=== PATIENT | male | born 1965 | race Asian ===

== ENCOUNTER 2020-12-12 11:45 | Outpatient (REF) | payer OTHER, SELFPAY ==
[2020-12-12 12:13] LABS: MANUAL DIFF FLAG NO
[2020-12-12 12:18] LABS: Basophils Percent Auto 0.7 % (0-2); Eosinophils Percent Auto 0.7 % (0-4); Hematocrit 45.3 % (42-52); Hemoglobin 15.5 g/dl (14.0-18.0); Imm Gran Abs Auto 0.01 X10*3/uL (0.00-0.03); Imm Gran Pct Auto 0.2 % (0.0-0.4); Lymphocytes Absolute Auto 1.4 X10*3/uL (1.2-4.9); Lymphocytes Percent Auto 30.5 % (20-40); Mean Corpuscular HGB Conc 34.2 g/dl (31.0-36.0); Mean Corpuscular Volume 87.8 fL (80-98); Mean Platelet Volume 9.5 fL (9.4-12.4); Monocytes Absolute Auto 0.4 X10*3/uL (0.1-1.2); Monocytes Percent Auto 7.8 % (2-11); Neutrophils Absolute Auto 2.7 X10*3/uL (2.0-8.3); Neutrophils Percent Auto 60.1 % (45-73); Platelet Count 255 X10*3/uL (160-400); Red Blood Count 5.16 X10*6/uL (4.60-5.80); Red Cell Distribution Width 12.7 % (11.0-16.0); White Blood Count 4.5 X10*3/uL (4.8-10.8)
[2020-12-12 12:22] LABS: Prothrombin Time 11.5 SEC (10.8-13.0)
[2020-12-12 12:45] LABS: Alanine Aminotransferase 29 U/L (0-40); Albumin Level 4.9 g/dL (3.5-5.0); Alkaline Phosphatase 83 U/L (39-117); Anion Gap 11 (12-20); Aspartate Amino Transferase 22 U/L (5-37); Bilirubin Direct 0.3 mg/dL (0.0-0.5); Bilirubin Total 0.8 mg/dL (0.0-1.0); Blood Urea Nitrogen 14 mg/dL (9-16); Calcium 9.3 mg/dL (8.4-10.2); Carbon Dioxide 27 mmol/L (22-29); Chloride 107 mmol/L (96-108); Estimated Glomerular Filt Rate > 60; Glucose Random 97 mg/dL (60-115); Potassium 3.8 mmol/L (3.3-5.1); Sodium 141 mmol/L (135-145); Total Protein 7.9 g/dL (6.5-8.0)
[2020-12-13 04:41] LABS: HBS Num1 0.93 mIU/mL (0-7.99); ~Hepatitis B Surface Antibody NONREACTIVE (Nonreactive)
[2020-12-13 04:58] LABS: HBsAGNum2 Reactive; HBsAGNum3 Reactive; Hepatitis B Surface Antigen Retest CNFM (Negative)
[2020-12-13 05:01] LABS: Hepatitis B Surface Antigen Rep Reactive (Negative)
[2020-12-13 13:26] LABS: Hepatitis BE Antibody REACTIVE (NON-REACTIVE); Hepatitis BE Antigen NON-REACTIVE (NON-REACTIVE)
[2020-12-15 16:48] LABS: Hepatitis B Viral DNA Qn - cp <1.00 NOT DETECTED Log IU/mL (NOT DETECTED); Hepatitis B Viral DNA Qn-IU/mL <10 NOT DETECTED IU/mL (NOT DETECTED)
[2020-12-16 17:28] LABS: FIB-ALT 27 U/L (9-46); FIB-Alpha-2-Macroglobulin 232 mg/dL (106-279); FIB-Apolipoprotein A1 119 mg/dL (94-176); FIB-GGT 19 U/L (3-95); FIB-Haptoglobin 71 mg/dL (43-212); FIB-Total Bilirubin 0.7 mg/dL (0.2-1.2); Liver Fibrosis Score 0.47; Liver Fibrosis Stage F1-F2; Nec Inflam Act Grade A0; Nec Inflam Act Score 0.16
[2020-12-16 18:57] LABS: Hepatitis Delta Antibody NEGATIVE
== END 2020-12-12 11:46 | disposition home or self-care (01) ==
LOC: HO.LAB 11:45
PROVIDERS: Visit Provider Internal Medicine
DX: B19.10 Unspecified viral hepatitis B without hepatic coma (principal)
CPT/HCPCS: 36415; 80048; 80076; 81596; 85025; 85610; 86692; 86706; 86707; 87340; 87350; 87517

== ENCOUNTER → 2020-12-26 10:28 | Outpatient (BNVA) | payer OTHER, SELFPAY | PROVIDERS: PCP Internal Medicine; Visit Provider Internal Medicine | DX: Z13.89 Encounter for screening for other disorder (principal) | CPT/HCPCS: 99212 ==

== ENCOUNTER 2021-01-11 08:55 | Outpatient (REF) | payer OTHER, SELFPAY ==
--- NOTE | ~2021-01-11 | US_ITS ---
EXAMINATION: US ABDOMEN COMPLETE CLINICAL INFORMATION: Unspecified viral hepatitis B, coma. COMPARISON: Ultrasound abdomen 05/09/2020 and 07/08/2019 TECHNIQUE: Real-time imaging of the abdominal viscera. FINDINGS: PANCREAS: Most of the pancreas is obscured by overlying gas. ABDOMINAL AORTA: There is mild atherosclerosis of the abdominal aorta without aneurysmal dilatation. INFERIOR VENA CAVA: Visualized portions are normal. LIVER: The liver is diffusely echogenic with no focal lesion seen. The liver is normal in size. The liver contour is normal. No focal hepatic lesion. There is no intrahepatic biliary duct dilatation seen. GALLBLADDER: Normal. The gallbladder is physiologically distended without evidence of stones, sludge, polyps, wall thickening or pericholecystic fluid. COMMON BILE DUCT: Normal in caliber measuring 0.5 cm in diameter. RIGHT KIDNEY: Normal. No hydronephrosis. No renal calculi or focal parenchymal lesions. The kidney measures 11.4 cm in maximum dimension. LEFT KIDNEY: There is an echogenic stone in the upper pole measuring 0.3 x 0.2 cm. No additional echogenic stones seen. There is no caliectasis or hydronephrosis. No focal parenchymal lesions. The kidney measures 12.2 cm in maximum dimension. SPLEEN: Normal. The spleen measures 10.0 cm in maximum dimension. FREE FLUID: None. US/US abdomen complete IMPRESSION: Diffuse hepatic steatosis without focal lesion. Nonobstructive echogenic left renal calculi measuring 0.3 x 0.2 cm.
== END 2021-01-11 08:56 | disposition home or self-care (01) ==
LOC: HO.US 08:55
PROVIDERS: Visit Provider Internal Medicine
DX: B19.10 Unspecified viral hepatitis B without hepatic coma (principal)
CPT/HCPCS: 76700

== ENCOUNTER 2021-05-22 09:16 | Outpatient (REF) | payer OTHER, SELFPAY ==
[2021-05-22 10:19] LABS: Alanine Aminotransferase 27 U/L (0-40); Albumin Level 4.7 g/dL (3.5-5.0); Alkaline Phosphatase 87 U/L (39-117); Aspartate Amino Transferase 20 U/L (5-37); Bilirubin Direct 0.3 mg/dL (0.0-0.5); Bilirubin Total 0.9 mg/dL (0.0-1.0); Total Protein 7.8 g/dL (6.5-8.0)
[2021-05-24 12:26] LABS: Hepatitis B Viral DNA Qn - cp <1.00 NOT DETECTED Log IU/mL (NOT DETECTED); Hepatitis B Viral DNA Qn-IU/mL <10 NOT DETECTED IU/mL (NOT DETECTED)
[2021-05-26 19:57] LABS: FIB-ALT 24 U/L (9-46); FIB-Alpha-2-Macroglobulin 232 mg/dL (106-279); FIB-Apolipoprotein A1 109 mg/dL (94-176); FIB-GGT 19 U/L (3-95); FIB-Haptoglobin 70 mg/dL (43-212); FIB-Total Bilirubin 0.8 mg/dL (0.2-1.2); Liver Fibrosis Score 0.53; Liver Fibrosis Stage F2; Nec Inflam Act Grade A0; Nec Inflam Act Score 0.14
== END 2021-05-22 09:17 | disposition home or self-care (01) ==
LOC: HO.LAB 09:16
PROVIDERS: PCP Internal Medicine; Visit Provider Internal Medicine
DX: B19.10 Unspecified viral hepatitis B without hepatic coma (principal)
CPT/HCPCS: 36415; 80076; 81596; 87517

== ENCOUNTER → 2021-06-05 10:25 | Outpatient (BNVA) | payer OTHER, SELFPAY | PROVIDERS: Visit Provider Internal Medicine | DX: B19.10 Unspecified viral hepatitis B without hepatic coma (principal) | CPT/HCPCS: 99212 ==

== ENCOUNTER 2022-01-08 10:28 | Outpatient (REF) | payer OTHER, SELFPAY ==
[2022-01-08 12:04] LABS: Hematocrit 44.9 % (42.0-52.0); Hemoglobin 15.1 g/dl (14.0-18.0); Mean Corpuscular HGB Conc 33.6 g/dl (31.0-36.0); Mean Corpuscular Hemoglobin 29.6 pg (27.0-33.0); Mean Platelet Volume 9.4 fL (9.4-12.4); Platelet Count 242 X10*3/uL (160-400); Red Cell Distribution Width 13.3 % (11.0-16.0); White Blood Count 6.6 X10*3/uL (4.8-10.8)
[2022-01-08 12:07] LABS: Prothrombin Time 11.2 SEC (9.9-13.0)
[2022-01-08 12:32] LABS: Alanine Aminotransferase 21 U/L (0-40); Albumin Level 4.5 g/dL (3.5-5.0); Alkaline Phosphatase 82 U/L (39-117); Aspartate Amino Transferase 21 U/L (5-37); Bilirubin Direct 0.4 mg/dL (0.0-0.5); Estimated Glomerular Filt Rate > 60; Total Protein 7.4 g/dL (6.5-8.0)
[2022-01-11 15:21] LABS: Hepatitis B Viral DNA Qn - cp <1.00 NOT DETECTED Log IU/mL (NOT DETECTED); Hepatitis B Viral DNA Qn-IU/mL <10 NOT DETECTED IU/mL (NOT DETECTED)
[2022-01-12 16:32] LABS: FIB-ALT 20 U/L (9-46); FIB-Alpha-2-Macroglobulin 226 mg/dL (106-279); FIB-Apolipoprotein A1 137 mg/dL (94-176); FIB-GGT 14 U/L (3-85); FIB-Haptoglobin 57 mg/dL (43-212); FIB-Total Bilirubin 0.7 mg/dL (0.2-1.2); Liver Fibrosis Score 0.41; Liver Fibrosis Stage F1-F2; Nec Inflam Act Grade A0; Nec Inflam Act Score 0.09
[2022-01-13 20:31] LABS: Hepatitis Delta Antibody NEGATIVE
== END 2022-01-08 10:29 | disposition home or self-care (01) ==
LOC: HO.LAB 10:28
PROVIDERS: Visit Provider Internal Medicine
DX: B19.10 Unspecified viral hepatitis B without hepatic coma (principal)
CPT/HCPCS: 36415; 80076; 81596; 82565; 85027; 85610; 86692; 87517; 99212

== ENCOUNTER 2022-02-12 11:12 | Outpatient (REF) | payer OTHER, SELFPAY ==
--- NOTE | ~2022-02-12 | US_ITS ---
EXAMINATION: US ABDOMEN COMPLETE CLINICAL INFORMATION: Unspecified viral hepatitis B without hepatic coma. COMPARISON: Ultrasound abdomen complete 01/11/2021 TECHNIQUE: Real-time imaging of the abdominal viscera. FINDINGS: PANCREAS: Obscured by bowel gas. ABDOMINAL AORTA: The proximal, mid, and distal segments are normal in caliber. INFERIOR VENA CAVA: Visualized portions are normal. LIVER: Normal. The liver is normal in size. The liver contour is normal. Parenchymal echogenicity is normal. No focal hepatic lesion. There is no intrahepatic biliary duct dilatation seen. GALLBLADDER: Normal. The gallbladder is physiologically distended without evidence of stones, sludge, polyps, wall thickening or pericholecystic fluid. COMMON BILE DUCT: Normal in caliber measuring 0.3 cm in diameter. RIGHT KIDNEY: Normal. No hydronephrosis. No renal calculi or focal parenchymal lesions. The kidney measures 11.5 cm in maximum dimension. LEFT KIDNEY: Normal. No hydronephrosis. No renal calculi or focal parenchymal lesions. The kidney measures 11.1 cm in maximum dimension. SPLEEN: Normal. The spleen measures 9.5 cm in maximum dimension. FREE FLUID: None. US/US abdomen complete IMPRESSION: Unremarkable sonographic appearance of the liver. No liver lesion. Pancreas is obscured by bowel gas.
== END 2022-02-12 11:13 | disposition home or self-care (01) ==
LOC: HO.US 11:12
PROVIDERS: Visit Provider Internal Medicine
DX: B19.10 Unspecified viral hepatitis B without hepatic coma (principal)
CPT/HCPCS: 76700

== ENCOUNTER 2022-07-05 08:34 | Outpatient (REF) | payer OTHER, SELFPAY ==
[2022-07-05 08:53] LABS: MANUAL DIFF FLAG NO
[2022-07-05 09:55] LABS: Basophils Percent Auto 0.7 % (0-2); Eosinophils Absolute Auto 0.1 X10*3/uL (0.0-0.4); Eosinophils Percent Auto 1.3 % (0-4); Hematocrit 42.7 % (42.0-52.0); Hemoglobin 14.6 g/dl (14.0-18.0); Imm Gran Abs Auto 0.01 X10*3/uL (0.00-0.03); Imm Gran Pct Auto 0.2 % (0.0-0.4); Lymphocytes Absolute Auto 1.6 X10*3/uL (1.2-4.9); Lymphocytes Percent Auto 29.5 % (20-40); Mean Corpuscular HGB Conc 34.2 g/dl (31.0-36.0); Mean Corpuscular Hemoglobin 30.2 pg (27.0-33.0); Mean Corpuscular Volume 88.2 fL (80.0-98.0); Mean Platelet Volume 9.8 fL (9.4-12.4); Monocytes Absolute Auto 0.4 X10*3/uL (0.1-1.2); Monocytes Percent Auto 8.1 % (2-11); Neutrophils Absolute Auto 3.3 x10*3/uL (2.0-8.3); Neutrophils Percent Auto 60.2 % (45-73); Platelet Count 239 X10*3/uL (160-400); Red Blood Count 4.84 X10*6/uL (4.60-5.80); Red Cell Distribution Width 12.7 % (11.0-16.0); White Blood Count 5.5 X10*3/uL (4.8-10.8)
[2022-07-05 09:58] LABS: INTERNATIONAL NORM RATIO 0.9 (0.9-1.1); Prothrombin Time 10.5 SEC (10.0-13.1)
[2022-07-05 10:30] LABS: Alanine Aminotransferase 33 U/L (0-40); Albumin Level 4.7 g/dL (3.5-5.0); Alkaline Phosphatase 85 U/L (39-117); Anion Gap 13 (12-20); Aspartate Amino Transferase 28 U/L (5-37); Bilirubin Direct 0.3 mg/dL (0.0-0.5); Bilirubin Total 0.8 mg/dL (0.0-1.0); Blood Urea Nitrogen 13 mg/dL (9-16); Calcium 9.4 mg/dL (8.4-10.2); Carbon Dioxide 25 mmol/L (22-29); Chloride 106 mmol/L (96-108); Estimated Glomerular Filt Rate > 60; Glucose Random 94 mg/dL (60-115); Potassium 4.2 mmol/L (3.3-5.1); Sodium 140 mmol/L (135-145); Total Protein 7.6 g/dL (6.5-8.0)
[2022-07-05 10:51] LABS: ~HepC Num1 0.17 S/CO (0.00-0.79); ~Hepatitis C Antibody Nonreactive (Nonreactive)
[2022-07-07 15:06] LABS: Hepatitis B Viral DNA Qn - cp <1.00 DETECTED Log IU/mL (NOT DETECTED); Hepatitis B Viral DNA Qn-IU/mL <10 DETECTED IU/mL (NOT DETECTED)
[2022-07-11 15:26] LABS: FIB-ALT 28 U/L (9-46); FIB-Alpha-2-Macroglobulin 238 mg/dL (106-279); FIB-Apolipoprotein A1 127 mg/dL (94-176); FIB-GGT 19 U/L (3-85); FIB-Haptoglobin 78 mg/dL (43-212); FIB-Total Bilirubin 0.7 mg/dL (0.2-1.2); Liver Fibrosis Score 0.46; Liver Fibrosis Stage F1-F2; Nec Inflam Act Grade A0; Nec Inflam Act Score 0.16
[2022-07-11 20:17] LABS: Hepatitis Delta Antibody NEGATIVE
== END 2022-07-05 08:35 | disposition home or self-care (01) ==
LOC: HO.LAB 08:34
PROVIDERS: PCP Internal Medicine; Visit Provider Internal Medicine
DX: B19.10 Unspecified viral hepatitis B without hepatic coma (principal)
CPT/HCPCS: 36415; 80048; 80076; 81596; 85025; 85610; 86692; 86803; 87517

== ENCOUNTER → 2022-07-16 10:37 | Outpatient (BNVA) | payer OTHER, SELFPAY | PROVIDERS: Visit Provider Internal Medicine | DX: B19.10 Unspecified viral hepatitis B without hepatic coma (principal) | CPT/HCPCS: 99212 ==

== ENCOUNTER 2022-12-20 12:48 | Outpatient (REF) | payer OTHER, SELFPAY ==
[2022-12-20 13:00] LABS: MANUAL DIFF FLAG NO
[2022-12-20 13:03] LABS: Basophils Percent Auto 0.7 % (0-2); Eosinophils Percent Auto 0.9 % (0-4); Hematocrit 44.6 % (42.0-52.0); Hemoglobin 15.5 g/dl (14.0-18.0); Imm Gran Abs Auto 0.01 X10*3/uL (0.00-0.03); Imm Gran Pct Auto 0.2 % (0.0-0.4); Lymphocytes Absolute Auto 1.2 X10*3/uL (1.2-4.9); Lymphocytes Percent Auto 26.4 % (20-40); Mean Corpuscular HGB Conc 34.8 g/dl (31.0-36.0); Mean Corpuscular Hemoglobin 30.7 pg (27.0-33.0); Mean Corpuscular Volume 88.3 fL (80.0-98.0); Mean Platelet Volume 9.3 fL (9.4-12.4); Monocytes Absolute Auto 0.4 X10*3/uL (0.1-1.2); Neutrophils Absolute Auto 2.8 x10*3/uL (2.0-8.3); Neutrophils Percent Auto 63.8 % (45-73); Platelet Count 236 X10*3/uL (160-400); Red Blood Count 5.05 X10*6/uL (4.60-5.80); Red Cell Distribution Width 13.1 % (11.0-16.0); White Blood Count 4.4 X10*3/uL (4.8-10.8)
[2022-12-20 13:37] LABS: Alanine Aminotransferase 27 U/L (0-40); Albumin Level 4.8 g/dL (3.5-5.0); Alkaline Phosphatase 88 U/L (39-117); Anion Gap 13 (12-20); Aspartate Amino Transferase 22 U/L (5-37); Bilirubin Direct 0.3 mg/dL (0.0-0.5); Bilirubin Total 1.3 mg/dL (0.0-1.0); Blood Urea Nitrogen 13 mg/dL (9-16); Calcium 9.4 mg/dL (8.4-10.2); Carbon Dioxide 24 mmol/L (22-29); Chloride 109 mmol/L (96-108); Estimated Glomerular Filt Rate > 60; Glucose Random 96 mg/dL (60-115); Sodium 142 mmol/L (135-145); Total Protein 7.7 g/dL (6.5-8.0)
[2022-12-21 08:36] LABS: HBS Num1 1.76 mIU/mL (0-7.99); HBsAGNum1 140.74 S/CO (0.00-0.99); ~HepC Num1 0.15 S/CO (0.00-0.79); ~Hepatitis B Surface Antibody NONREACTIVE (Nonreactive); ~Hepatitis C Antibody Nonreactive (Nonreactive)
[2022-12-21 10:35] LABS: HBsAGNum2 Reactive; HBsAGNum3 Reactive
[2022-12-21 10:37] LABS: Hepatitis B Surface Antigen Rep Reactive (Negative)
[2022-12-25 08:18] LABS: Hepatitis B Viral DNA Qn - cp <1.00 NOT DETECTED Log IU/mL (NOT DETECTED); Hepatitis B Viral DNA Qn-IU/mL <10 NOT DETECTED IU/mL (NOT DETECTED)
[2022-12-26 20:34] LABS: Hepatitis Delta Antibody NEGATIVE
[2022-12-28 00:18] LABS: FIB-ALT 19 U/L (9-46); FIB-Alpha-2-Macroglobulin 235 mg/dL (106-279); FIB-Apolipoprotein A1 125 mg/dL (94-176); FIB-GGT 18 U/L (3-85); FIB-Haptoglobin 68 mg/dL (43-212); FIB-Total Bilirubin 0.9 mg/dL (0.2-1.2); Liver Fibrosis Score 0.52; Liver Fibrosis Stage F2; Nec Inflam Act Grade A0
== END 2022-12-20 12:49 | disposition home or self-care (01) ==
LOC: HO.LAB 12:48
PROVIDERS: PCP Internal Medicine; Visit Provider Internal Medicine
DX: B19.10 Unspecified viral hepatitis B without hepatic coma (principal)
CPT/HCPCS: 36415; 80048; 80076; 81596; 85025; 86692; 86706; 86803; 87340; 87517

== ENCOUNTER → 2023-01-14 10:47 | Outpatient (BNVA) | payer OTHER, SELFPAY | PROVIDERS: PCP Internal Medicine; Visit Provider Internal Medicine | DX: B19.10 Unspecified viral hepatitis B without hepatic coma (principal) | CPT/HCPCS: 99212 ==

== ENCOUNTER 2023-01-28 08:24 | Outpatient (REF) | payer OTHER, SELFPAY ==
--- NOTE | ~2023-01-28 | US_ITS ---
EXAMINATION: US ABDOMEN COMPLETE CLINICAL INFORMATION: Unspecified viral hepatitis B without hepatic coma. COMPARISON: Ultrasound abdomen complete 02/12/2022 and 01/11/2021. TECHNIQUE: Real-time imaging of the abdominal viscera. Technically limited study secondary to bowel gas. FINDINGS: PANCREAS: Partially visualized body the pancreas is echogenic. The head and the tail of pancreas is not seen well. ABDOMINAL AORTA: The proximal, mid, and distal segments are normal in caliber. INFERIOR VENA CAVA: Visualized portions are normal. LIVER: The liver is normal in size. The liver contour is normal. There is increased liver echogenicity No focal hepatic lesion. There is no intrahepatic biliary duct dilatation seen. GALLBLADDER: Gallbladder wall thickness is 0.22 cm. The gallbladder is physiologically distended without evidence of stones, sludge, polyps, wall thickening or pericholecystic fluid. COMMON BILE DUCT: Normal in caliber measuring 0.2 cm in diameter. RIGHT KIDNEY: Normal. No hydronephrosis. No renal calculi or focal parenchymal lesions. The kidney measures 10.9 cm in maximum dimension. LEFT KIDNEY: There is an echogenic stone in the upper pole measuring 0.41 x 0.38 x 0.37 cm. No hydronephrosis or focal parenchymal lesions. The kidney measures 11.4 cm in maximum dimension. SPLEEN: Normal. The spleen measures 8.7 cm in maximum dimension. FREE FLUID: None. US/US abdomen complete IMPRESSION: 1. Diffuse echogenic liver without focal lesion. Previously, the ultrasound of the liver was normal 2. Small echogenic stone upper pole left kidney without caliectasis or hydronephrosis. 3. The rest of the abdominal ultrasound is unremarkable. .
== END 2023-01-28 08:25 | disposition home or self-care (01) ==
LOC: HO.HMGCX 08:24
PROVIDERS: PCP Internal Medicine; Visit Provider Internal Medicine
DX: B19.10 Unspecified viral hepatitis B without hepatic coma (principal)
CPT/HCPCS: 76700

== ENCOUNTER 2023-07-04 09:54 | Outpatient (REF) | payer OTHER, SELFPAY ==
[2023-07-04 10:12] LABS: MANUAL DIFF FLAG NO
[2023-07-04 10:43] LABS: Basophils Percent Auto 0.7 % (0-2); Eosinophils Percent Auto 0.9 % (0-4); Hematocrit 43.2 % (42.0-52.0); Imm Gran Abs Auto 0.01 X10*3/uL (0.00-0.03); Imm Gran Pct Auto 0.2 % (0.0-0.4); Lymphocytes Absolute Auto 1.3 X10*3/uL (1.2-4.9); Lymphocytes Percent Auto 27.7 % (20-40); Mean Corpuscular HGB Conc 34.7 g/dl (31.0-36.0); Mean Corpuscular Hemoglobin 30.3 pg (27.0-33.0); Mean Corpuscular Volume 87.3 fL (80.0-98.0); Mean Platelet Volume 9.9 fL (9.4-12.4); Monocytes Absolute Auto 0.4 X10*3/uL (0.1-1.2); Monocytes Percent Auto 9.1 % (2-11); Neutrophils Absolute Auto 2.8 x10*3/uL (2.0-8.3); Neutrophils Percent Auto 61.4 % (45-73); Platelet Count 229 X10*3/uL (160-400); Red Blood Count 4.95 X10*6/uL (4.60-5.80); Red Cell Distribution Width 12.6 % (11.0-16.0); White Blood Count 4.5 X10*3/uL (4.8-10.8)
[2023-07-04 10:53] LABS: Prothrombin Time 11.8 SEC (11.1-13.3)
[2023-07-04 11:14] LABS: Alanine Aminotransferase 25 U/L (0-40); Albumin Level 4.8 g/dL (3.5-5.0); Alkaline Phosphatase 84 U/L (39-117); Anion Gap 13 (12-20); Aspartate Amino Transferase 24 U/L (5-37); Bilirubin Direct 0.3 mg/dL (0.0-0.5); Blood Urea Nitrogen 15 mg/dL (9-16); Calcium 9.8 mg/dL (8.4-10.2); Carbon Dioxide 23 mmol/L (22-29); Chloride 107 mmol/L (96-108); Estimated Glomerular Filt Rate > 60; Glucose Random 89 mg/dL (60-115); Potassium 3.6 mmol/L (3.3-5.1); Sodium 139 mmol/L (135-145)
[2023-07-05 15:53] LABS: Hepatitis B Viral DNA Qn - cp NOT DETECTED Log IU/mL (NOT DETECTED); Hepatitis B Viral DNA Qn-IU/mL NOT DETECTED (NOT DETECTED)
[2023-07-12 15:29] LABS: FIB-ALT 19 U/L (9-46); FIB-Alpha-2-Macroglobulin 244 mg/dL (106-279); FIB-Apolipoprotein A1 120 mg/dL (94-176); FIB-GGT 15 U/L (3-85); FIB-Haptoglobin 64 mg/dL (43-212); FIB-Total Bilirubin 0.8 mg/dL (0.2-1.2); Liver Fibrosis Score 0.53; Liver Fibrosis Stage F2; Nec Inflam Act Grade A0
[2023-07-12 20:54] LABS: Hepatitis Delta Antibody NEGATIVE
== END 2023-07-04 09:55 | disposition home or self-care (01) ==
LOC: HO.LAB 09:54
PROVIDERS: PCP Internal Medicine; Visit Provider Internal Medicine
DX: B19.10 Unspecified viral hepatitis B without hepatic coma (principal)
CPT/HCPCS: 36415; 80048; 80076; 81596; 85025; 85610; 86692; 87517

== ENCOUNTER 2023-07-17 15:03 | Outpatient (AMB) | payer OTHER, SELFPAY ==
[2023-07-17 15:00] VITALS: BP 128/80; PULSE 65; O2SAT 99; BMI 27.4
--- NOTE | 2023-07-17 15:00 | A.OFFVIS_ITS ---
Intake Vital Signs 07/17/23 15:00 Height 5 ft 10 in Weight 191 lb BMI 27.4 BP 128/80 Blood Pressure Location Lt brachial Position Sitting Pulse 65 Pulse Source Pulse Oximeter Pulse Oximetry (%) 99 Intake Visit Reasons: F/U 6 mth,lab & U/S Allergies No Known Allergies Allergy (Verified 07/17/23 15:07) HPI F/U 6 mth,lab & U/S HPI Details He is here for followup Hepatitis B. He has been taking tenofovir alafenamide with no concern. He has no complaints. Fibrotest femains at F2 and viral load undetectable. [facility] Medical History Hepatitis B Social History Household Members: Spouse Housing: House Alcohol intake: never Patient Tobacco Use Status: Former Tobacco user Cigarettes Per Day: 2 service: No Current occupational status: unemployed Sexual orientation: Straight/Heterosexual Gender identity: Male Review of Systems Const All systems reviewed & are unremarkable except as noted in HPI and below Physical Exam Vital Signs: Last Vital Signs Pulse 65 07/17/23 15:00 BP 128/80 07/17/23 15:00 Pulse Ox 99 07/17/23 15:00 BMI result Body Mass Index 27.4 Const General: cooperative Orientation/consciousness: patient oriented x3 HEENT Head: Yes normal to inspection Mouth: Normal oral and palatal mucosa present Eyes General: appearance normal, both eyes and all related structures Pupils: Equal, round and reactive pupils present Resp Effort & Inspection: normal respiratory effort Cardio Rate: regular rate Rhythm: regular rhythm GI Palpation (GI): Soft to palpation and nontender General: Yes no CVA tenderness Back/Spine/Pelvis Back: no CVA tenderness Skin General skin exam: no rashes or lesions noted Neuro General: patient oriented x3 Cranial nerves: Yes CN's II-XII intact bilaterally and Yes Equal, round and reactive pupils present Extrem General: Yes normal to inspection Psych Appearance: grossly normal Assessment & Plan Assessment & Plan (1) Hepatitis B: Comment: He is doing well His labs show no progression of Hepatitis B clinically but concern over increased fibrosis score to F2 I am concerned about fatty liver. Code(s): B19.10 - Unspecified viral hepatitis B without hepatic coma Plan Continue Vemlidy. See in six months and check labs as below and liver u/s. Orders: Orders Complete Blood Count Auto Diff 5 Months B19.10 - Unspecified viral hepatitis B without hepatic coma Liver Panel 5 Months B19.10 - Unspecified viral hepatitis B without hepatic coma Hepatitis B Viral DNA Qn 07/17/23 B19.10 - Unspecified viral hepatitis B without hepatic coma Hepatitis Delta Antibody 5 Months B19.10 - Unspecified viral hepatitis B without hepatic coma Basic Metabolic Panel 5 Months B19.10 - Unspecified viral hepatitis B without hepatic coma Liver Fibrosis Pnl 5 Months B19.10 - Unspecified viral hepatitis B without hepatic coma Prothrombin Time INR 5 Months B19.10 - Unspecified viral hepatitis B without hepatic coma US abdomen complete 07/17/23 B19.10 - Unspecified viral hepatitis B without hepatic coma Medications: Changed From tenofovir alafenamide must administer with a meal/food 25 mg PO DAILY 30 days 30 tabs 5RF To tenofovir alafenamide (Vemlidy) must administer with a meal/food 25 mg PO DAILY 90 tabs 1RF 90 days Coding Level of Care Code Est Pt Level 3 (32010) Diagnoses Hepatitis B B19.10
== END 2023-07-17 16:11 | disposition home or self-care (01) ==
LOC: HO.HID 15:03
PROVIDERS: PCP Internal Medicine; Visit Provider Internal Medicine
DX: B19.10 Unspecified viral hepatitis B without hepatic coma (principal)
CPT/HCPCS: 99213

== ENCOUNTER → 2023-07-17 15:03 | Outpatient (BNVA) | payer OTHER, SELFPAY | PROVIDERS: PCP Internal Medicine; Visit Provider Internal Medicine | DX: B19.10 Unspecified viral hepatitis B without hepatic coma (principal) | CPT/HCPCS: 99212 ==

== ENCOUNTER 2024-01-08 08:56 | Outpatient (REF) | payer OTHER, SELFPAY ==
--- NOTE | ~2024-01-08 | US_ITS ---
EXAMINATION: US ABDOMEN COMPLETE CLINICAL INFORMATION: Unspecified viral hepatitis B without hepatic coma. COMPARISON: Ultrasound abdomen complete 01/28/2023 and 02/12/2022. TECHNIQUE: Real-time imaging of the abdominal viscera. FINDINGS: PANCREAS: Largely obscured by overlapping bowel gas. ABDOMINAL AORTA: The proximal, mid, and distal segments are normal in caliber. INFERIOR VENA CAVA: Visualized portions are normal. LIVER: The liver is normal in size. The liver contour is normal. There is diffuse increased liver parenchymal echogenicity. No focal hepatic lesion. There is no intrahepatic biliary duct dilatation seen. GALLBLADDER: Normal. The gallbladder is physiologically distended without evidence of stones, sludge, polyps, wall thickening or pericholecystic fluid. COMMON BILE DUCT: Normal in caliber measuring 0.3 cm in diameter. RIGHT KIDNEY: Normal. No hydronephrosis. No renal calculi or focal parenchymal lesions. The kidney measures 10.9 cm in maximum dimension. LEFT KIDNEY: No hydronephrosis or focal parenchymal lesions. The kidney measures 11.4 cm in maximum dimension. At the upper pole, a 5 mm nonobstructing calculus is seen. SPLEEN: Normal. The spleen measures 9.3 cm in maximum dimension. FREE FLUID: None. US/US abdomen complete IMPRESSION: 1. There is generalized increase in hepatic echotexture, consistent with fatty infiltration or hepatocellular disease. Please correlate clinically. Provided history of hepatitis C noted. No focal hepatic mass or intrahepatic biliary dilatation is seen. 2. A 5 mm nonobstructing left renal upper pole calculus is seen. 3. Technically limited ultrasound examination of the pancreas.
== END 2024-01-08 08:57 | disposition home or self-care (01) ==
LOC: HO.HMGCX 08:56
PROVIDERS: PCP Internal Medicine; Visit Provider Internal Medicine
DX: B19.10 Unspecified viral hepatitis B without hepatic coma (principal)
CPT/HCPCS: 76700

== ENCOUNTER 2024-01-08 09:49 | Outpatient (REF) | payer OTHER, SELFPAY ==
[2024-01-08 10:02] LABS: MANUAL DIFF FLAG NO
[2024-01-08 10:14] LABS: Eosinophils Absolute Auto 0.1 X10*3/uL (0.0-0.4); Hematocrit 42.9 % (42.0-52.0); Hemoglobin 14.9 g/dl (14.0-18.0); Imm Gran Abs Auto 0.01 X10*3/uL (0.00-0.03); Imm Gran Pct Auto 0.3 % (0.0-0.4); Lymphocytes Absolute Auto 1.1 X10*3/uL (1.2-4.9); Lymphocytes Percent Auto 27.8 % (20-40); Mean Corpuscular HGB Conc 34.7 g/dl (31.0-36.0); Mean Corpuscular Hemoglobin 30.1 pg (27.0-33.0); Mean Corpuscular Volume 86.7 fL (80.0-98.0); Mean Platelet Volume 9.5 fL (9.4-12.4); Monocytes Absolute Auto 0.4 X10*3/uL (0.1-1.2); Monocytes Percent Auto 9.4 % (2-11); Neutrophils Absolute Auto 2.4 x10*3/uL (2.0-8.3); Neutrophils Percent Auto 59.5 % (45-73); Platelet Count 230 X10*3/uL (160-400); Red Blood Count 4.95 X10*6/uL (4.60-5.80); Red Cell Distribution Width 13.3 % (11.0-16.0)
[2024-01-08 10:20] LABS: INTERNATIONAL NORM RATIO 0.9 (0.9-1.1); Prothrombin Time 11.1 SEC (11.1-13.3)
[2024-01-08 11:06] LABS: Alanine Aminotransferase 22 U/L (0-40); Albumin Level 4.7 g/dL (3.5-5.0); Alkaline Phosphatase 80 U/L (39-117); Anion Gap 10 (12-20); Aspartate Amino Transferase 24 U/L (5-37); Bilirubin Direct 0.2 mg/dL (0.0-0.5); Bilirubin Total 0.9 mg/dL (0.0-1.0); Blood Urea Nitrogen 13 mg/dL (9-16); Calcium 9.2 mg/dL (8.4-10.2); Carbon Dioxide 24 mmol/L (22-29); Chloride 109 mmol/L (96-108); Estimated Glomerular Filt Rate > 60; Glucose Random 95 mg/dL (60-115); Potassium 3.6 mmol/L (3.3-5.1); Sodium 139 mmol/L (135-145); Total Protein 8.1 g/dL (6.5-8.0)
[2024-01-11 10:23] LABS: Hepatitis B Viral DNA Qn - cp NOT DETECTED Log IU/mL (NOT DETECTED); Hepatitis B Viral DNA Qn-IU/mL NOT DETECTED (NOT DETECTED)
[2024-01-15 18:44] LABS: Hepatitis Delta Antibody NEGATIVE
[2024-01-17 14:04] LABS: FIB-ALT 22 U/L (9-46); FIB-Alpha-2-Macroglobulin 259 mg/dL (106-279); FIB-Apolipoprotein A1 133 mg/dL (94-176); FIB-GGT 16 U/L (3-85); FIB-Haptoglobin 67 mg/dL (43-212); FIB-Total Bilirubin 0.8 mg/dL (0.2-1.2); Liver Fibrosis Score 0.52; Liver Fibrosis Stage F2; Nec Inflam Act Grade A0; Nec Inflam Act Score 0.12
== END 2024-01-08 09:50 | disposition home or self-care (01) ==
LOC: HO.LAB 09:49
PROVIDERS: Visit Provider Internal Medicine
DX: B19.10 Unspecified viral hepatitis B without hepatic coma (principal)
CPT/HCPCS: 36415; 80048; 80076; 81596; 85025; 85610; 86692; 87517

== ENCOUNTER 2024-01-22 13:12 | Outpatient (AMB) | payer OTHER, SELFPAY ==
--- NOTE | 2024-01-22 13:14 | A.OFFVIS_ITS ---
Intake Vital Signs 01/22/24 13:17 Height 5 ft 10 in Weight 189 lb BMI 27.1 Pulse 68 Pulse Source Pulse Oximeter Pulse Oximetry (%) 98 Intake Visit Reasons: 6 mth. f/u, lab/US. Allergies No Known Allergies Allergy (Verified 01/22/24 13:18) HPI 6 mth. f/u, lab/US. HPI Details He is doing well. He has labs done shows no worsening liver function with fibrosis score F2. He has Hepatitis B viral load undetectable and abdominal u/s increased heterogenity liver. He has unremarkable creatinine and feels well. [facility] Medical History Hepatitis B Social History Household Members: Spouse Housing: House Alcohol intake: never Patient Tobacco Use Status: Former Tobacco user Cigarettes Per Day: 2 service: No Current occupational status: unemployed Sexual orientation: Straight/Heterosexual Gender identity: Male Review of Systems Const All systems reviewed & are unremarkable except as noted in HPI and below Physical Exam Vital Signs: Last Vital Signs Pulse 68 01/22/24 13:17 Pulse Ox 98 01/22/24 13:17 BMI result Body Mass Index 27.1 Const General: cooperative Orientation/consciousness: patient oriented x3 HEENT Head: Yes normal to inspection Mouth: Normal oral and palatal mucosa present Eyes General: appearance normal, both eyes and all related structures Pupils: Equal, round and reactive pupils present Resp Effort & Inspection: normal respiratory effort Cardio Rate: regular rate Rhythm: regular rhythm GI Palpation (GI): Soft to palpation and nontender General: Yes no CVA tenderness Back/Spine/Pelvis Back: no CVA tenderness Skin General skin exam: no rashes or lesions noted Neuro General: patient oriented x3 Cranial nerves: Yes CN's II-XII intact bilaterally and Yes Equal, round and reactive pupils present Extrem General: Yes normal to inspection Psych Appearance: grossly normal Assessment & Plan Assessment & Plan (1) Hepatitis B: Comment: He is doing well His labs show no progression of Hepatitis B clinically and stable F2 liver Code(s): B19.10 - Unspecified viral hepatitis B without hepatic coma Plan: Continue Vemlidy. See in six months Labs written for before as well as refill Vemlidy which I think he gets through his daughter who is pharmacist. Orders: Orders Complete Blood Count Auto Diff 6 Months B19.10 - Unspecified viral hepatitis B without hepatic coma Basic Metabolic Panel 6 Months B19.10 - Unspecified viral hepatitis B without hepatic coma Liver Panel 6 Months B19.10 - Unspecified viral hepatitis B without hepatic coma Hepatitis B Viral DNA Qn 6 Months B19.10 - Unspecified viral hepatitis B without hepatic coma Hepatitis Delta Antibody 6 Months B19.10 - Unspecified viral hepatitis B without hepatic coma Prothrombin Time INR 6 Months B19.10 - Unspecified viral hepatitis B without hepatic coma Medications: Refilled tenofovir alafenamide (Vemlidy) must administer with a meal/food 25 mg PO DAILY 90 tabs 1RF 90 days Coding Level of Care Code Est Pt Level 4 (74572) Diagnoses Hepatitis B B19.10
[2024-01-22 13:17] VITALS: PULSE 68; O2SAT 98; BMI 27.1
== END 2024-01-22 14:11 | disposition home or self-care (01) ==
LOC: HO.HID 13:12
PROVIDERS: PCP Internal Medicine; Visit Provider Internal Medicine
DX: B19.10 Unspecified viral hepatitis B without hepatic coma (principal)
CPT/HCPCS: 99214

== ENCOUNTER → 2024-01-22 13:12 | Outpatient (BNVA) | payer OTHER, SELFPAY | PROVIDERS: PCP Internal Medicine; Visit Provider Internal Medicine | DX: B19.10 Unspecified viral hepatitis B without hepatic coma (principal) | CPT/HCPCS: 99212 ==

== ENCOUNTER 2024-07-08 09:56 | Outpatient (REF) | payer OTHER, SELFPAY ==
[2024-07-08 10:28] LABS: MANUAL DIFF FLAG NO
[2024-07-08 10:42] LABS: Basophils Percent Auto 0.5 % (0-2); Eosinophils Absolute Auto 0.1 X10*3/uL (0.0-0.4); Eosinophils Percent Auto 1.2 % (0-4); Hematocrit 44.3 % (42.0-52.0); Imm Gran Abs Auto 0.01 X10*3/uL (0.00-0.03); Imm Gran Pct Auto 0.2 % (0.0-0.4); Lymphocytes Absolute Auto 1.2 X10*3/uL (1.2-4.9); Mean Corpuscular HGB Conc 33.9 g/dl (31.0-36.0); Mean Corpuscular Hemoglobin 29.8 pg (27.0-33.0); Mean Corpuscular Volume 88.1 fL (80.0-98.0); Mean Platelet Volume 9.5 fL (9.4-12.4); Monocytes Absolute Auto 0.3 X10*3/uL (0.1-1.2); Monocytes Percent Auto 7.9 % (2-11); Neutrophils Absolute Auto 2.6 x10*3/uL (2.0-8.3); Neutrophils Percent Auto 61.2 % (45-73); Platelet Count 239 X10*3/uL (160-400); Red Blood Count 5.03 X10*6/uL (4.60-5.80); Red Cell Distribution Width 13.1 % (11.0-16.0); White Blood Count 4.3 X10*3/uL (4.8-10.8)
[2024-07-08 10:46] LABS: INTERNATIONAL NORM RATIO 0.9 (0.9-1.1); Prothrombin Time 11.4 SEC (11.1-13.3)
[2024-07-08 11:13] LABS: Alanine Aminotransferase 20 U/L (0-40); Albumin Level 4.5 g/dL (3.5-5.0); Alkaline Phosphatase 76 U/L (39-117); Anion Gap 11 (12-20); Aspartate Amino Transferase 22 U/L (5-37); Bilirubin Direct 0.3 mg/dL (0.0-0.5); Bilirubin Total 0.8 mg/dL (0.0-1.0); Blood Urea Nitrogen 13 mg/dL (9-16); Calcium 9.4 mg/dL (8.4-10.2); Carbon Dioxide 26 mmol/L (22-29); Chloride 108 mmol/L (96-108); Estimated Glomerular Filt Rate > 60; Glucose Random 96 mg/dL (60-115); Potassium 3.7 mmol/L (3.3-5.1); Sodium 141 mmol/L (135-145); Total Protein 7.5 g/dL (6.5-8.0)
[2024-07-09 13:14] LABS: Hepatitis B Viral DNA Qn - cp NOT DETECTED Log IU/mL (NOT DETECTED); Hepatitis B Viral DNA Qn-IU/mL NOT DETECTED (NOT DETECTED)
[2024-07-17 19:23] LABS: Hepatitis Delta Antibody NEGATIVE
== END 2024-07-08 09:57 | disposition home or self-care (01) ==
LOC: HO.LAB 09:56
PROVIDERS: PCP Internal Medicine; Visit Provider Internal Medicine
DX: B19.10 Unspecified viral hepatitis B without hepatic coma (principal)
CPT/HCPCS: 36415; 80048; 80076; 85025; 85610; 86692; 87517

== ENCOUNTER 2024-07-24 09:31 | Outpatient (AMB) | payer OTHER, SELFPAY ==
--- NOTE | 2024-07-24 09:36 | MHC.OFFVIS ---
Vital Signs 07/24/24 09:37 Height 5 ft 10 in Weight 190 lb 4 oz BMI 27.3 BP 126/79 Blood Pressure Location Lt brachial Position Sitting Pulse 68 Pulse Source Monitor Intake Visit Reasons: follow up 6 month ok per Analysis Reporting Developer Required: No Allergies No Known Allergies Allergy (Verified 01/22/24 13:18) HPI HPI follow up 6 month ok per : Details: He has been doing well. He has Hepatitis B viral load undetectable. He takes Vemlidy. Rest of labs unremarkable. [facility] Medical History Hepatitis B Social History Household Members: Spouse Housing: House Alcohol intake: never Patient Tobacco Use Status: Former Tobacco user Cigarettes Per Day: 2 service: No Current occupational status: unemployed Sexual orientation: Straight/Heterosexual Gender identity: Male Review of Systems Const All systems reviewed & are unremarkable except as noted in HPI and below Physical Exam Vital Signs: Last Vital Signs Pulse 68 07/24/24 09:37 BP 126/79 07/24/24 09:37 BMI result Body Mass Index 27.3 Const General: cooperative Orientation/consciousness: patient oriented x3 HEENT Head: Yes normal to inspection Mouth: Normal oral and palatal mucosa present Eyes General: appearance normal, both eyes and all related structures Pupils: Equal, round and reactive pupils present Resp Effort & Inspection: normal respiratory effort Cardio Rate: regular rate Rhythm: regular rhythm GI Palpation (GI): Soft to palpation and nontender General: Yes no CVA tenderness Back/Spine/Pelvis Back: no CVA tenderness Skin General skin exam: no rashes or lesions noted Neuro General: patient oriented x3 Cranial nerves: Yes CN's II-XII intact bilaterally and Yes Equal, round and reactive pupils present Extrem General: Yes normal to inspection Psych Appearance: grossly normal Assessment & Plan Assessment & Plan (1) Hepatitis B: Comment: He is doing well His labs show no progression of Hepatitis B clinically and stable F2 liver Code(s): B19.10 - Unspecified viral hepatitis B without hepatic coma Category: Medical Plan: Check Hepatitis B viral load See in six months with labs before. Coding Level of Care Code Est Pt Level 3 (11231) Diagnoses Hepatitis B B19.10
[2024-07-24 09:37] VITALS: BP 126/79; PULSE 68; BMI 27.3
== END 2024-07-24 10:12 | disposition home or self-care (01) ==
PROVIDERS: PCP Internal Medicine; Visit Provider Internal Medicine
DX: B19.10 Unspecified viral hepatitis B without hepatic coma (principal)
CPT/HCPCS: 99213

== ENCOUNTER → 2024-07-24 09:31 | Outpatient (BNVA) | payer OTHER, SELFPAY | PROVIDERS: PCP Internal Medicine; Visit Provider Internal Medicine | DX: B19.10 Unspecified viral hepatitis B without hepatic coma (principal) | CPT/HCPCS: 99212 ==

== ENCOUNTER 2025-01-08 09:44 | Outpatient (REF) | payer OTHER, SELFPAY ==
[2025-01-08 10:03] LABS: MANUAL DIFF FLAG NO
[2025-01-08 10:33] LABS: Basophils Percent Auto 0.3 % (0-2); Eosinophils Percent Auto 1.1 % (0-4); Hematocrit 41.2 % (42.0-52.0); Hemoglobin 14.2 g/dl (14.0-18.0); Lymphocytes Percent Auto 27.6 % (20-40); Mean Corpuscular HGB Conc 34.5 g/dl (31.0-36.0); Mean Corpuscular Hemoglobin 30.1 pg (27.0-33.0); Mean Corpuscular Volume 87.5 fL (80.0-98.0); Mean Platelet Volume 9.4 fL (9.4-12.4); Monocytes Absolute Auto 0.3 X10*3/uL (0.1-1.2); Monocytes Percent Auto 9.1 % (2-11); Neutrophils Absolute Auto 2.2 x10*3/uL (2.0-8.3); Neutrophils Percent Auto 61.9 % (45-73); Platelet Count 212 X10*3/uL (160-400); Red Blood Count 4.71 X10*6/uL (4.60-5.80); Red Cell Distribution Width 13.2 % (11.0-16.0); White Blood Count 3.5 X10*3/uL (4.8-10.8)
[2025-01-08 10:39] LABS: INTERNATIONAL NORM RATIO 0.9 (0.9-1.1); Prothrombin Time 10.9 SEC (10.9-12.4)
--- OUTSIDE RECORDS SUMMARY | 2025-01-08 10:40 | XMS_ITS | Clinical Summary ---
Author Organization [address] Address [address] [place] [phone] Phone Care Team Providers Care Party Plan Sales Unit Sales Leader Name Role Phone Rashaad Castro MD Primary Care Provider [phone] Allergies Active Allergy Reactions Criticality Noted Date Comments Fruit Extracts 12/04/2016 Peaches and cherries Lisinopril Cough Medium 02/24/2018 Other 11/21/2016 Seasonal allergies Medications UNABLE TO FIND Inhale into the lungs. Regional-pressu re 6-16 Active tenofovir alafenamide (Vemlidy) 25 mg tablet 2 Active phenylephrine-wi tch Amita (Preparation H,pe, witch amita,) 0.25-50 % gel Apply 1 Applicator topically 2 times daily as needed (Rectal pain/bleeding). 3 Active amLODIPine (NORVASC) 10 mg tablet Take 1 tablet (10 mg total) by mouth 1 (one) time each day. 90 tablet 1 4 Active cholecalciferol (VITAMIN D-3) 25 mcg (1,000 unit) tablet Take 1 tablet (1,000 Units total) by mouth 1 (one) time each day. 90 tablet 1 4 Active pravastatin (PRAVACHOL) 20 mg tablet Take 1 tablet (20 mg total) by mouth 1 (one) time each day. 90 tablet 1 4 Active fluticasone propionate (FLONASE) 50 mcg/actuation nasal spray Administer 1 spray into each nostril 1 (one) time each day if needed for rhinitis. Shake gently. Before first use, prime pump. After use, clean tip and replace cap. 16 g 2 4 Active tamsulosin (FLOMAX) 0.4 mg 24 hr capsule Take 1 capsule (0.4 mg total) by mouth 1 (one) time each day. Capsules should be taken 30 minutes following the same meal each day. 90 capsule 1 4 Active Active Problems Problem Noted Date Diagnosed Date Prediabetes 10/21/2023 Thyroid nodule 10/21/2023 Prostate enlargement 09/20/2021 Ground glass opacity present on imaging of lung 06/23/2018 Pulmonary nodules 04/03/2018 Upper airway cough syndrome 04/03/2018 MAISHA on CPAP 03/24/2018 Overview (08/12/2024): [facility] Home Polysomnogram: Date 03/19/2018; AHI 26, Unclassified apneas 113; Obstructive apneas 0; Central apneas 0; Mixed apneas 0; hypopneas 7; average oxygen saturation 95% (lowest 75% with saturations <88% for 5% or more of study) [facility] Home sleep test 03/05/2022; weight 173; BMI 27. AHI 36. 2 unclassified apneas, 149 obstructive apneas, 4 central apneas, 2 mixed apneas and 12 hypopneas. Average oxygen saturation 93% with oxygen randy 77%. - Obstructive Sleep Apnea - moderate; mostly unclassified apneas; with sleep related hypoventilation by 2017 home sleep test. Obstructive sleep apnea-severe with mostly obstructive apneas and with nocturnal hypoxemia based on 2021 home sleep test. Essential hypertension 03/03/2018 Persistent dry cough 03/03/2018 Overview (08/12/2024): D/c lisinopril Started PPI Normal PFT's and CT scan of the chest in 06/2017 Overweight (BMI 25.0-29.9) 01/13/2018 Retinal vein occlusion 01/10/2018 Overview (08/12/2024): Follows with [facility] Hypercholesteremia 10/21/2017 Chronic hepatitis B 11/21/2016 Overview (08/12/2024): Follows with ID Dr Forbes on [facility]ire[facility] Had ultrasound for liver cancer screening December 2020. 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 Immunizations Name Administration Dates Next Due Influenza Quadravalent, MDCK , 0.5ml, preservative free (Flucelvax) 6mo and older 10/21/2023,12/25/2021 Influenza, Unspecified 06/27/2020,08/19/2016 Pfizer SARS-CoV-2 COVID-19, mRNA, LNP-S, preservative free 03/09/2021,02/26/2021 Td, Unspecified 11/15/2004 Tdap Tetanus diptheria acell ular pertussis (Boostrix; Adacel) 7yo and older 05/27/2017 Zoster recombinant (Shingrix) 19yo and older ,05/23/2023 Surgical History Surgery Date Site/Laterality Comments OTHER SURGICAL HISTORY PROCEDURE: DENIES PREVIOUS SURGERY COLONOSCOPY 12/04/2016 PROCEDURE: HISTORICAL COLONOSCOPY; COMMENT: 7 mm descending colon polyp: tubular adenoma. Medical History Medical History Date Comments Hypercholesteremia 10/21/2017 DX:Hyperchole steremia Retinal vein occlusion (CMS/HCC) 01/10/2018 DX:Retinal vein occlusion; COMMENT: Follows with [facility] Overweight (BMI 25.0-29.9) 01/13/2018 DX:Ov erweight (BMI 25.0-29.9) Essential hypertension 03/03/2018 DX:Essent ial hypertension Persistent dry cough 03/03/2018 DX:Persiste nt dry cough; COMMENT: D/c lisinopril Started PPI Normal PFT's and CT scan of the chest in 06/2017 Obstructive sleep apnea 03/24/2018 DX:Obstr uctive sleep apnea; COMMENT: [facility] Home Polysomnogram: Date 03/19/2018; AHI 26, Unclassified apneas 113; Obstructive apneas 0; Central apneas 0; Mixed apneas 0; hypopneas 7; average oxygen saturation 95% (lowest 75% with saturations <88% for 5% or more of study) - Obstructive Sleep Apnea - moderate; mostly unclassified apneas; with sleep related hypoventilation by 2018 home polysomnogram. Upper airway cough syndrome 04/03/2018 DX:U pper airway cough syndrome Pulmonary nodules 04/03/2018 DX:Pulmonary n odules House dust mite allergy 06/23/2018 DX:House dust mite allergy Ground glass opacity present on imaging of lung 06/23/2018 DX:Ground glass opacity pres ent on imaging of lung Chronic hepatitis B (CMS/HCC) 11/21/2016 DX :Chronic hepatitis B (HCC); COMMENT: Follows with ID Dr Forbes on [facility] Family History Medical History Relation Name Comments No Known Problems Brother 1 No Known Problems Brother 2 No Known Problems Brother 3 No Known Problems Daughter Hypertension Father No Known Problems Maternal Grandfather No Known Problems Maternal Grandmother Diabetes Mother Lung cancer Mother No Known Problems Paternal Grandfather No Known Problems Paternal Grandmother No Known Problems Sister 1 No Known Problems Sister 2 No Known Problems Son Coronary artery disease Neg Hx Relation Name Status Comments Brother 1 Alive Brother 2 Alive Brother 3 Alive Daughter Alive Father Alive Maternal Grandfather Maternal Grandmother Mother Alive Paternal Grandfather Paternal Grandmother Sister 1 Alive Sister 2 Alive Son Alive Social History Tobacco Use Types Packs/Day Years Used Date Smoking Tobacco: Former Smokeless Tobacco: Never Tobacco Cessation:Counseling Given: Not Answered Alcohol Use Standard Drinks/Week Comments No 0 (1 standard drink = 0.6 oz pur e alcohol) Sex and Gender Information Value Date Recorded Sex Assigned at Not on file Legal Sex Male 10:47 AM EST Gender Identity Not on file Sexual Orientation Not on file Obstetrics History Last Filed Vital Signs Vital Sign Reading Time Taken Comments Blood Pressure 122/78 09/23/2024 8:20 AM EST Pulse 62 09/23/2024 8:20 AM EST Temperature 36.9 ??C (98.4 ??F) 09/23/2024 8:20 AM ES T Respiratory Rate 16 09/23/2024 8:20 AM EST Oxygen Saturation - - Inhaled Oxygen Concentration - - Weight 83.5 kg (184 lb) 09/23/2024 8:20 AM EST Height 170.2 cm (5' 7 ) 09/23/2024 8:20 AM EST Body Mass Index 28.82 09/23/2024 8:20 AM EST Plan of Treatment Upcoming Encounters Date Type Department Care Team (Late st Contact Info) Description 03/24/2025 9:15 AM EDT Office Visit Adult Medicine [address] [phone] Rashaad Castro MD [address] [place] [address] Health Maintenance Due Date Last Done Comments Hepatitis A Vaccines (1 of 2 - Risk 2-dose series) 1985 Hepatitis B Vaccines (1 of 3 - 19+ 3-dose series) 1985 Pneumococcal Vaccine: 50+ Years (1 of 2 - PCV) 1985 Pneumococcal Vaccine: Pediatrics (0 to 5 Years) and At-Risk Patients (6 to 64 Years) (1 of 2 - PCV) 1985 Depression Screening 10/13/2022 HIV Screening 10/13/2022 Social Influencers of Health Screening 10/13/2022 COVID-19 Vaccine ( season) 2024 03/29/2022, 03/09/2021, 02/26/2021 Influenza Vaccine (#1) 2024 , 12/25/2021, 06/27/2020, Additional history exists Hypertension/CHF/CAD Annual BMP Blood Test 09/21/2025 09/21/2024, 10/16/2023 Colorectal Cancer Screening: Colonoscopy 04/30/2027 04/30/2022 DTaP,Tdap,and Td Vaccines (3 - Td or Tdap) 05/27/2027 05/27/2017, 11/15/2004 Cholesterol Screening (Lipid Panel) 09/21/2029 09/21/2024, 10/16/2023 Hepatitis C Screening Completed 11/15/2004 Zoster Vaccines Completed 08/01/2023, 05/23/2023 HIB Vaccines Aged Out No longer eligi ble based on patient's age to complete this topic HPV Vaccines Aged Out No longer eligi ble based on patient's age to complete this topic IPV Vaccines Aged Out No longer eligi ble based on patient's age to complete this topic MMR Vaccines Aged Out No longer eligi ble based on patient's age to complete this topic Meningococcal ACWY Vaccine Aged Out N o longer eligible based on patient's age to complete this topic Meningococcal B Vacine Aged Out No lo nger eligible based on patient's age to complete this topic RSV Immunization Patients Under 20 months Aged Out No longer eligible based on patient's age to complete this topic Varicella Vaccines Aged Out No longer eligible based on patient's age to complete this topic Procedures Procedure Name Priority Date/Time Associated Diagnosis Comments COMPREHENSIVE METABOLIC PANEL Routine 09/21/2024 9:50 AM EST Essential hypertension, malignant Pure hypercholesterolem ia Hepatitis B carrier (CMS/HCC) Nontoxic uninodular goiter LIPID PANEL WITH REFLEX TO DIRECT LDL Routine 09/21/2024 9:50 AM EST Essential hypertension, malignant Pure hypercholesterolem ia Hepatitis B carrier (CMS/HCC) Nontoxic uninodular goiter COLONOSCOPY Routine 04/30/2022 HEPATITIS C SCREENING Routine 11/15/2004 from Last 3 Months or Most Recently Relevant to Health Maintenance Results * (ABNORMAL) Lipid panel with reflex to direct LDL (09/21/2024 9:50 AM EST) Cholesterol 162 0 - 200 mg/dL LAB CHEMISTRY METHOD 09/21/2024 2:45 PM [facility] Triglycerides 51 0 - 150 mg/dL LAB CHEMISTRY METHOD 09/21/2024 2:45 PM [facility] HDL 47 >=40 mg/dL LAB CHEMISTRY METHOD 09/21/2024 2:45 PM [facility] LDL Calculated 105(H) 0 - 100 mg/dL LAB CHEMISTRY METHOD 09/21/2024 2:45 PM [facility] VLDL Cholesterol Ez 10.2 mg/dL LAB CHEMISTRY METHOD 09/21/2024 2:45 PM [facility] Non HDL Chol. (LDL+VLDL) 115 <145 mg/dL LAB CHEMISTRY METHOD 09/21/2024 2:45 PM [facility] Chol/HDL Ratio 3.4 0.0 - 4.4 LAB CHEMISTRY METHOD 09/21/2024 2:45 PM [facility] Blood Venous blood specimen / Unknown Venipuncture / Unknown 09/21/2024 9:50 AM EST 09/21/2024 9:51 AM EST us Rashaad Castro MD LAB BLOOD ORDERABLES Final Result [facility] [address] [place] [address], [place] [phone] * (ABNORMAL) Comprehensive metabolic panel (09/21/2024 9:50 AM EST) Sodium 140 133 - 145 mmol/L LAB CHEMISTRY METHOD 09/21/2024 2:44 PM [facility] Potassium 3.8 3.5 - 5.5 mmol/L LAB CHEMISTRY METHOD 09/21/2024 2:44 PM [facility] Chloride 111(H) 96 - 110 mmol/L LAB CHEMISTRY METHOD 09/21/2024 2:44 PM [facility] CO2 25 21 - 32 mmol/L LAB CHEMISTRY METHOD 09/21/2024 2:44 PM [facility] Anion Gap 4 3 - 11 LAB CHEMISTRY METHOD 09/21/2024 2:44 PM [facility] Glucose 107(H) 70 - 100 mg/dL LAB CHEMISTRY METHOD 09/21/2024 2:44 PM [facility] BUN 20 5 - 25 mg/dL LAB CHEMISTRY METHOD 09/21/2024 2:44 PM [facility] Creatinine 0.98 0.70 - 1.30 mg/dL LAB CHEMISTRY METHOD 09/21/2024 2:44 PM [facility] eGFR 89 >=60 mL/min/1. 73m2 LAB CHEMISTRY METHOD 09/21/2024 2:44 PM [facility] Comment:Calculation based on the??Chronic Kidney Disease Epidemiology Collaboration (CKD-EPI) equation refit??without adjustment for race. BUN/Creatinine Ratio 20.4 LAB CHEMISTRY METHOD 09/21/2024 2:44 PM EST [facility] Calcium 8.9 8.5 - 10.5 mg/dL LAB CHEMISTRY METHOD 09/21/2024 2:44 PM [facility] AST (SGOT) 27 10 - 42 unit/L LAB CHEMISTRY METHOD 09/21/2024 2:44 PM [facility] ALT (SGPT) 33 10 - 60 unit/L LAB CHEMISTRY METHOD 09/21/2024 2:44 PM [facility] Alkaline Phosphatase 90 42 - 121 unit/L LAB CHEMISTRY METHOD 09/21/2024 2:44 PM [facility] Total Protein 7.2 6.0 - 8.0 g/dL LAB CHEMISTRY METHOD 09/21/2024 2:44 PM [facility] Albumin 4.0 3.2 - 5.0 g/dL LAB CHEMISTRY METHOD 09/21/2024 2:44 PM [facility] Total Bilirubin 0.5 0.0 - 1.4 mg/dL LAB CHEMISTRY METHOD 09/21/2024 2:44 PM [facility] Blood Venous blood specimen / Unknown Venipuncture / Unknown 09/21/2024 9:50 AM EST 09/21/2024 9:51 AM EST Rashaad Castro MD LAB BLOOD ORDERABLES Final Result [facility] [address] [place] [address], * Colonoscopy (04/30/2022) [facility] Colonoscopy No interpreta tion,abstr acted Anatomical Region Laterality Modality Other Historical Provider HEALTH MAINTENANCE Final Result * Hepatitis C Screening (11/15/2004) [facility] Hepatitis C Screening Abstracted Historical Provider HEALTH MAINTENANCE Final Result from Last 3 Months or Most Recently Relevant to Health Maintenance Insurance [place] [address] [address] PLANS Care Teams Party Plan Sales Unit Sales Leader Relationship Specialty Start Date End Date Rashaad Castro MD [address] [place] [address] PCP - General Internal Medicine 03/29/22
[2025-01-08 11:13] LABS: Alanine Aminotransferase 25 U/L (0-40); Albumin Level 4.5 g/dL (3.5-5.0); Alkaline Phosphatase 80 U/L (39-117); Anion Gap 11 (12-20); Aspartate Amino Transferase 35 U/L (5-37); Bilirubin Direct 0.3 mg/dL (0.0-0.5); Blood Urea Nitrogen 18 mg/dL (9-16); Calcium 9.1 mg/dL (8.4-10.2); Carbon Dioxide 25 mmol/L (22-29); Chloride 109 mmol/L (96-108); Estimated Glomerular Filt Rate > 60; Glucose Random 100 mg/dL (60-115); Potassium 3.6 mmol/L (3.3-5.1); Sodium 141 mmol/L (135-145); Total Protein 7.7 g/dL (6.5-8.0)
[2025-01-11 12:32] LABS: Hepatitis B Viral DNA Qn - cp NOT DETECTED Log IU/mL (NOT DETECTED); Hepatitis B Viral DNA Qn-IU/mL NOT DETECTED (NOT DETECTED)
[2025-01-14 17:29] LABS: FIB-ALT 17 U/L (9-46); FIB-Alpha-2-Macroglobulin 242 mg/dL (106-279); FIB-Apolipoprotein A1 131 mg/dL (94-176); FIB-GGT 13 U/L (3-85); FIB-Haptoglobin 64 mg/dL (43-212); FIB-Total Bilirubin 0.8 mg/dL (0.2-1.2); Liver Fibrosis Score 0.48; Liver Fibrosis Stage F2; Nec Inflam Act Grade A0; Nec Inflam Act Score 0.08
== END 2025-01-08 09:45 | disposition home or self-care (01) ==
LOC: HO.LAB 09:44
PROVIDERS: PCP Internal Medicine; Visit Provider Internal Medicine
DX: B19.10 Unspecified viral hepatitis B without hepatic coma (principal)
CPT/HCPCS: 36415; 80048; 80076; 81596; 85025; 85610; 87517

== ENCOUNTER 2025-01-20 13:10 | Outpatient (AMB) | payer OTHER, SELFPAY ==
[2025-01-20 13:15] VITALS: BP 120/70; BMI 27.5
--- NOTE | 2025-01-20 13:15 | A.OFFVIS_ITS ---
Vital Signs 01/20/25 13:15 Height 5 ft 10 in Weight 192 lb BMI 27.5 BP 120/70 Intake Visit Reasons: 6 month follow up Allergies No Known Allergies Allergy (Verified 01/20/25 13:16) HPI HPI 6 month follow up: Details: He feels well He has F2 still liver fibrosis score and undetectable Hepatitis B viral load. [facility] Medical History Hepatitis B Social History Household Members: Spouse Housing: House Alcohol intake: never Patient Tobacco Use Status: Former Tobacco user Cigarettes Per Day: 2 service: No Current occupational status: unemployed Sexual orientation: Straight/Heterosexual Gender identity: Male Review of Systems Const All systems reviewed & are unremarkable except as noted in HPI and below Physical Exam Vital Signs: Last Vital Signs BP 120/70 01/20/25 13:15 BMI result Body Mass Index 27.5 Const General: cooperative Orientation/consciousness: patient oriented x3 HEENT Head: Yes normal to inspection Mouth: Normal oral and palatal mucosa present Eyes General: appearance normal, both eyes and all related structures Pupils: Equal, round and reactive pupils present Resp Effort & Inspection: normal respiratory effort Cardio Rate: regular rate Rhythm: regular rhythm GI Palpation (GI): Soft to palpation and nontender General: Yes no CVA tenderness Back/Spine/Pelvis Back: no CVA tenderness Skin General skin exam: no rashes or lesions noted Neuro General: patient oriented x3 Cranial nerves: Yes CN's II-XII intact bilaterally and Yes Equal, round and reactive pupils present Extrem General: Yes normal to inspection Psych Appearance: grossly normal Assessment & Plan Assessment & Plan (1) Hepatitis B: Comment: He is doing well His labs show no progression of Hepatitis B clinically and stable F2 liver Code(s): B19.10 - Unspecified viral hepatitis B without hepatic coma Category: Medical Plan: See in six months See GI prn need Orders: Orders Liver Panel 6 Months B19.10 - Unspecified viral hepatitis B without hepatic coma Hepatitis B Viral DNA Qn 6 Months B19.10 - Unspecified viral hepatitis B without hepatic coma Hepatitis Delta Antibody 6 Months B19.10 - Unspecified viral hepatitis B without hepatic coma US abdomen complete 01/20/25 B19.10 - Unspecified viral hepatitis B without hepatic coma Complete Blood Count Auto Diff 6 Months B19.10 - Unspecified viral hepatitis B without hepatic coma Basic Metabolic Panel 6 Months B19.10 - Unspecified viral hepatitis B without hepatic coma Liver Fibrosis Pnl 6 Months B19.10 - Unspecified viral hepatitis B without hepatic coma Medications: Refilled tenofovir alafenamide must administer with a meal/food 25 mg PO DAILY 90 days 90 tabs 1RF tenofovir alafenamide (Vemlidy) must administer with a meal/food 25 mg PO DAILY 90 tabs 1RF 90 days Coding Level of Care Code Est Pt Level 3 (76360) Diagnoses Hepatitis B B19.10
== END 2025-01-20 13:34 | disposition home or self-care (01) ==
LOC: HO.HID 13:10
PROVIDERS: PCP Internal Medicine; Visit Provider Internal Medicine
DX: B19.10 Unspecified viral hepatitis B without hepatic coma (principal)
CPT/HCPCS: 99213

== ENCOUNTER → 2025-01-20 13:10 | Outpatient (BNVA) | payer OTHER, SELFPAY | PROVIDERS: PCP Internal Medicine; Visit Provider Internal Medicine | DX: B19.10 Unspecified viral hepatitis B without hepatic coma (principal) | CPT/HCPCS: 99212 ==

== ENCOUNTER 2025-03-11 09:46 | Outpatient (REF) | payer OTHER, SELFPAY ==
--- NOTE | ~2025-03-11 | US_ITS ---
EXAMINATION: US ABDOMEN COMPLETE CLINICAL INFORMATION: Hepatitis B.. COMPARISON: January 08, 2024. TECHNIQUE: Real-time ultrasound of the abdomen using grayscale technique. FINDINGS: PANCREAS: No peripancreatic fluid collections. Less than 1.4 cm nodular isoechoic abnormality seen in the epigastric region. ABDOMINAL AORTA: The proximal, mid, and distal segments are normal in caliber. INFERIOR VENA CAVA: Visualized portions are normal. LIVER: Liver measures 14 cm per technologist. No nodular contour. Coarse echotexture. No gross solid or cystic lesion detected by the technologist. No intrahepatic biliary ductal dilatation. GALLBLADDER: Fluid-filled. No pericholecystic fluid collection or gallbladder wall thickening. COMMON BILE DUCT: 5 mm. RIGHT KIDNEY: 11 cm. Normal echotexture. Normal renal cortical thickness. No hydronephrosis. No gross solid or cystic lesion. Normal flow on color Doppler interrogation of the renal hilum. LEFT KIDNEY: 12 cm. Normal echotexture. Normal renal cortical thickness. No hydronephrosis. 8 mm hyperechoic area in the upper pole of the corticomedullary junction No gross solid or cystic lesion. Normal flow on color Doppler interrogation of the renal hilum. SPLEEN: 11 cm. No focal lesion. Normal flow within the splenic vessels. FREE FLUID: None. US/US abdomen complete IMPRESSION: Questionable prominent lymph nodes in the epigastric region. No cholelithiasis. Probable nonobstructing calculus, left kidney. Electronically signed by: Wesley Altamirano MD 03/11/2025 10:33 AM EDT
--- OUTSIDE RECORDS SUMMARY | 2025-03-11 10:35 | XMS_ITS | Clinical Summary ---
Author Organization [address] Address [address] [place] [id number] Phone Care Team Providers Care Steaming Cabinet Tender Name Role Phone Rashaad Castro MD Primary Care Provider [phone] Allergies Active Allergy Reactions Criticality Noted Date Comments Fruit Extracts 12/04/2016 Peaches and cherries Lisinopril Cough Medium 02/24/2018 Other 11/21/2016 Seasonal allergies Medications UNABLE TO FIND Inhale into the lungs. Regional-press ure 6-16 Active tenofovir alafenamide (Vemlidy) 25 mg tablet 12/25/19 22 Active phenylephrine-w itch Amita (Preparation H,pe, witch amita,) 0.25-50 % gel Apply 1 Applicator topically 2 times daily as needed (Rectal pain/bleeding) . 10/22/20 23 Active fluticasone propionate (FLONASE) 50 mcg/actuation nasal spray Administer 1 spray into each nostril 1 (one) time each day if needed for rhinitis. Shake gently. Before first use, prime pump. After use, clean tip and replace cap. 16 g 2 09/23/20 24 Active tamsulosin (FLOMAX) 0.4 mg 24 hr capsule TAKE 1 CAPSULE BY MOUTH ONCE DAILY 30 MINUTES AFTER A MEAL AT THE SAME TIME EVERY DAY 90 capsule 02/24/20 25 Active amLODIPine (NORVASC) 10 mg tablet Take 1 tablet by mouth once daily 90 tablet 02/24/20 25 Active pravastatin (PRAVACHOL) 20 mg tablet TAKE 1 TABLET BY MOUTH ONCE EACH DAY. 90 tablet 02/24/20 25 Active cholecalciferol (VITAMIN D-3) 25 mcg (1,000 unit) tablet Take 1 tablet by mouth once daily 90 tablet 02/24/20 25 Active amLODIPine (NORVASC) 10 mg tablet Take 1 tablet (10 mg total) by mouth 1 (one) time each day. 90 tablet 1 09/23/20 24 025 Discontinued cholecalciferol (VITAMIN D-3) 25 mcg (1,000 unit) tablet Take 1 tablet (1,000 Units total) by mouth 1 (one) time each day. 90 tablet 1 09/23/20 24 025 Discontinued pravastatin (PRAVACHOL) 20 mg tablet Take 1 tablet (20 mg total) by mouth 1 (one) time each day. 90 tablet 1 09/23/20 24 025 Discontinued tamsulosin (FLOMAX) 0.4 mg 24 hr capsule Take 1 capsule (0.4 mg total) by mouth 1 (one) time each day. Capsules should be taken 30 minutes following the same meal each day. 90 capsule 1 09/23/20 24 025 Discontinued Active Problems Problem Noted Date Diagnosed Date Prediabetes 10/21/2023 Thyroid nodule 10/21/2023 Prostate enlargement 09/20/2021 Ground glass opacity present on imaging of lung 06/23/2018 Pulmonary nodules 04/03/2018 Upper airway cough syndrome 04/03/2018 MAISHA on CPAP 03/24/2018 Overview (08/12/2024): [facility] Home Polysomnogram: Date 03/19/2018; AHI 26, Unclassified apneas 113; Obstructive apneas 0; Central apneas 0; Mixed apneas 0; hypopneas 7; average oxygen saturation 95% (lowest 75% with saturations <88% for 5% or more of study) [facility] Home sleep test 03/05/2022; weight 173; BMI [...] Overweight (BMI 25.0-29.9) 01/13/2018 Retinal vein occlusion (CMS/HCC V28) 01/10/2018 Overview (08/12/2024): Follows with [facility] Hypercholesteremia 10/21/2017 Chronic hepatitis B (CMS/HCC V24, CMS/HCC V28) 0 11/21/2016 Overview (08/12/2024): Follows with ID Dr Forbes on Viread Had ultrasound for liver cancer screening December 2020. 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 Immunizations Name Administration Dates Next Due Influenza [...] Hypercholesteremia 10/21/2017 DX:Hyperchole steremia Retinal vein occlusion (CMS/HCC V28) 01/10/2018 DX:Retinal vein occlusion; COMMENT: Follows with [facility] Overweight (BMI 25.0-29.9) 01/13/2018 DX:Ov erweight (BMI 25.0-29.9) Essential hypertension 03/03/2018 DX:Essent ial hypertension Persistent dry cough 03/03/2018 DX:Persiste nt dry cough; COMMENT: D/c lisinopril Started PPI Normal PFT's and CT scan of the chest in 06/2017 Obstructive sleep apnea 03/24/2018 DX:Obstr uctive sleep apnea; COMMENT: [facility] Home Polysomnogram: Date 03/19/2018; AHI 26, Unclassified [...] on imaging of lung Chronic hepatitis B (CMS/HCC V24, CMS/HCC V28) 11/21/2016 DX:Chronic hepatitis B (HCC) ; COMMENT: Follows with ID Dr Forbes on [...] 9:15 AM EDT Office Visit Adult Medicine [address] [phone] Rashaad Castro MD [address] [place] [phone] Health Maintenance Due Date Last Done Comments [...] season) 2024 03/29/2022, 03/09/2021, 02/26/2021 Influenza Vaccine (Season Ended) 2025 10/21/2023, 12/25/2021, 06/27/2020, Additional history exists Hypertension/CHF/CAD Annual [...] age to complete this topic Meningococcal B Vaccine Aged Out No l onger eligible based on patient's age to complete this topic RSV Immunization Patients Under 20 months Aged Out No longer eligible based on patient's age to complete this topic Varicella Vaccines Aged Out No longer eligible based on patient's age to complete this topic Procedures Procedure Name Priority Date/Time Associated Diagnosis Comments EXTERNAL CLINICAL LAB 01/08/2025 EXTERNAL CLINICAL LAB 01/08/2025 EXTERNAL CLINICAL LAB 01/08/2025 COMPREHENSIVE METABOLIC PANEL Routine 09/21/2024 9:50 AM EST Essential hypertension, malignant Pure hypercholesterolem ia Hepatitis B carrier (CMS/HCC V24, CMS/HCC V28) Nontoxic uninodular goiter LIPID PANEL WITH REFLEX TO DIRECT LDL Routine 09/21/2024 9:50 AM EST Essential hypertension, malignant Pure hypercholesterolem ia Hepatitis B carrier (CMS/HCC V24, CMS/HCC V28) Nontoxic uninodular goiter COLONOSCOPY Routine 04/30/2022 HEPATITIS C SCREENING Routine 11/15/2004 from Last 3 Months or Most Recently Relevant to Health Maintenance Results * External clinical lab (01/08/2025) Only the most recent of3 resultswithin the time period is included. us Provider [facility] LAB BLOOD ORDERABLES Fin al Result * (ABNORMAL) Lipid panel with reflex to direct LDL (09/21/2024 9:50 AM EST) Cholesterol 162 0 - 200 mg/dL LAB CHEMISTRY METHOD 09/21/2024 2:45 PM EST [facility] Triglycerides 51 0 - 150 mg/dL LAB CHEMISTRY METHOD 09/21/2024 2:45 PM EST [facility] HDL 47 >=40 mg/dL LAB CHEMISTRY METHOD 09/21/2024 2:45 PM EST [facility] LDL Calculated 105(H) 0 - 100 mg/dL LAB CHEMISTRY METHOD 09/21/2024 2:45 PM EST [facility] VLDL Cholesterol Ez 10.2 mg/dL LAB CHEMISTRY METHOD 09/21/2024 2:45 PM EST [facility] Non HDL Chol. (LDL+VLDL) 115 <145 mg/dL LAB CHEMISTRY METHOD 09/21/2024 2:45 PM EST [facility] Chol/HDL Ratio 3.4 0.0 - 4.4 LAB CHEMISTRY METHOD 09/21/2024 2:45 PM EST [facility] Blood Venous blood specimen / Unknown Venipuncture / Unknown 09/21/2024 9:50 AM EST 09/21/2024 9:51 AM EST us Rashaad Castro MD LAB BLOOD ORDERABLES Final Result [facility] [address] [place] [address], * (ABNORMAL) Comprehensive metabolic panel (09/21/2024 9:50 AM EST) Pathologist [facility] Sodium 140 133 - 145 mmol/L LAB CHEMISTRY METHOD 09/21/2024 2:44 PM EST [facility] Potassium 3.8 3.5 - 5.5 mmol/L LAB CHEMISTRY METHOD 09/21/2024 2:44 PM EST [facility] Chloride 111(H) 96 - 110 mmol/L LAB CHEMISTRY METHOD 09/21/2024 2:44 PM [facility] CO2 25 21 - 32 mmol/L LAB CHEMISTRY METHOD 09/21/2024 2:44 PM [facility] Anion Gap 4 3 - 11 LAB CHEMISTRY METHOD 09/21/2024 2:44 PM [facility] Glucose 107(H) 70 - 100 mg/dL LAB CHEMISTRY METHOD 09/21/2024 2:44 PM [facility] BUN 20 5 - 25 mg/dL LAB CHEMISTRY METHOD 09/21/2024 2:44 PM [facility] Creatinine 0.98 0.70 - 1.30 mg/dL LAB CHEMISTRY METHOD 09/21/2024 2:44 PM [facility] eGFR 89 >=60 mL/min/1. 73m2 LAB CHEMISTRY METHOD 09/21/2024 2:44 PM [facility] Comment:Calculation based on the??Chronic Kidney Disease Epidemiology Collaboration (CKD-EPI) equation refit??without adjustment for race. BUN/Creatinine Ratio 20.4 LAB CHEMISTRY METHOD 09/21/2024 2:44 PM [facility] Calcium 8.9 8.5 - 10.5 mg/dL LAB CHEMISTRY METHOD 09/21/2024 2:44 PM [facility] AST (SGOT) 27 10 - 42 unit/L LAB CHEMISTRY METHOD 09/21/2024 2:44 PM [facility] ALT (SGPT) 33 10 - 60 unit/L LAB CHEMISTRY METHOD 09/21/2024 2:44 PM [facility] Alkaline Phosphatase 90 42 - 121 unit/L LAB CHEMISTRY METHOD 09/21/2024 2:44 PM [facility] Total Protein 7.2 6.0 - 8.0 g/dL LAB CHEMISTRY METHOD 09/21/2024 2:44 PM [facility] Albumin 4.0 3.2 - 5.0 g/dL LAB CHEMISTRY METHOD 09/21/2024 2:44 PM EST [facility] Total Bilirubin 0.5 0.0 - 1.4 mg/dL LAB CHEMISTRY METHOD 09/21/2024 2:44 PM EST [facility] Blood Venous blood specimen / Unknown Venipuncture / Unknown 09/21/2024 9:50 AM EST 09/21/2024 9:51 AM EST us Rashaad Castro MD LAB BLOOD ORDERABLES Final Result [facility] [address] [place] [address], * Colonoscopy (04/30/2022) Colonoscopy No interpreta tion,abstr acted Anatomical Region Laterality Modality Other Historical Provider HEALTH MAINTENANCE Final Result * Hepatitis C Screening (11/15/2004) Hepatitis C Screening Abstracted Historical Provider HEALTH MAINTENANCE Final Result from Last 3 Months or Most Recently Relevant to Health Maintenance Insurance [employer] Care Teams Steaming Cabinet Tender Relationship Specialty Start Date End Date Rashaad Castro MD [address] [place] [address] PCP - General Internal Medicine 03/29/22
== END 2025-03-11 09:47 | disposition home or self-care (01) ==
LOC: HO.HMGCX 09:46
PROVIDERS: PCP Internal Medicine; Visit Provider Internal Medicine
DX: B19.10 Unspecified viral hepatitis B without hepatic coma (principal)
CPT/HCPCS: 76700

== ENCOUNTER → 2025-03-11 09:57 | Outpatient (BNV) | payer OTHER, SELFPAY | PROVIDERS: PCP Internal Medicine; Visit Provider Radiology Diagnostic Radiology | DX: B16.9 Acute hepatitis B without delta-agent and without hepatic coma (principal) | CPT/HCPCS: 76700 ==

== ENCOUNTER 2025-07-26 09:57 | Outpatient (REF) | payer OTHER, SELFPAY ==
[2025-07-26 10:16] LABS: MANUAL DIFF FLAG NO
[2025-07-26 10:37] LABS: Hematocrit 42.2 % (42.0-52.0); Hemoglobin 14.4 g/dl (14.0-18.0); Imm Gran Abs Auto 0.04 X10*3/uL (0.00-0.03); Imm Gran Pct Auto 0.5 % (0.0-0.4); Lymphocytes Absolute Auto 1.7 X10*3/uL (1.2-4.9); Mean Corpuscular HGB Conc 34.1 g/dl (31.0-36.0); Mean Corpuscular Hemoglobin 30.1 pg (27.0-33.0); Mean Corpuscular Volume 88.3 fL (80.0-98.0); NRBC Abs Auto 0.000 X10*3/uL (0.0-0.012); NRBC Pct Auto 0.0 /100WBC (0.0-0.2); Platelet Count 226 X10*3/uL (160-400); Red Blood Count 4.78 X10*6/uL (4.60-5.80); White Blood Count 7.6 X10*3/uL (4.8-10.8)
[2025-07-26 11:20] LABS: Alanine Aminotransferase 25 U/L (0-40); Albumin Level 4.6 g/dL (3.5-5.0); Alkaline Phosphatase 76 U/L (39-117); Anion Gap 10 (12-20); Aspartate Amino Transferase 25 U/L (5-37); Blood Urea Nitrogen 14 mg/dL (9-16); Calcium 8.9 mg/dL (8.4-10.2); Carbon Dioxide 26 mmol/L (22-29); Chloride 109 mmol/L (96-108); Estimated Glomerular Filt Rate > 60; Potassium 3.5 mmol/L (3.3-5.1); Sodium 141 mmol/L (135-145); Total Protein 7.3 g/dL (6.5-8.0)
--- OUTSIDE RECORDS SUMMARY | 2025-07-26 12:13 | XMS_ITS | Clinical Summary ---
Author Organization [address] Address [address] [place] [phone] Phone Care Team Providers Care Patient Care Representative Name Role Phone Rashaad Castro MD Primary Care Provider Allergies Active Allergy Reactions Criticality Noted Date [...] (one) time each day. 90 tablet 1 5 Active cholecalciferol (VITAMIN D-3) 25 mcg (1,000 unit) tablet Take 1 tablet (1,000 Units total) by mouth 1 (one) time each day. 90 tablet 1 5 Active fluticasone propionate (FLONASE) 50 mcg/actuation nasal spray Administer 1 spray into each nostril 1 (one) time each day if needed for rhinitis. Shake gently. Before first use, prime pump. After use, clean tip and replace cap. 16 g 2 5 Active pravastatin (PRAVACHOL) 20 mg tablet Take 1 tablet (20 mg total) by mouth 1 (one) time each day. 90 tablet 1 5 Active tamsulosin (FLOMAX) 0.4 mg 24 hr capsule Take 1 capsule (0.4 mg total) by mouth 1 (one) time each day. Capsules should be taken 30 minutes following the same meal each day. 90 capsule 1 5 Active Active Problems Problem Noted Date Diagnosed Date Prediabetes 10/21/2023 Thyroid nodule 10/21/2023 Prostate enlargement 09/20/2021 Ground glass opacity present on imaging of lung 06/23/2018 Pulmonary nodules 04/03/2018 Upper airway cough syndrome 04/03/2018 MAISHA on CPAP 03/24/2018 Overview (08/12/2024): [facility] Home Polysomnogram: Date 03/19/2018; AHI 26, Unclassified apneas 113; Obstructive apneas 0; Central apneas 0; Mixed apneas 0; hypopneas 7; average oxygen saturation 95% (lowest 75% with saturations <88% for 5% or more of study) [facility] Home sleep test 03/05/2022; weight 173; [...] Overweight (BMI 25.0-29.9) 01/13/2018 Retinal vein occlusion ([facility]/HCC V28) 01/10/2018 Overview (08/12/2024): Follows with [facility] Hypercholesteremia 10/21/2017 Chronic hepatitis B (CMS/HCC V24, CMS/HCC V28) 0 11/21/2016 Overview (08/12/2024): Follows with ID Dr Forbes on Viread Had ultrasound for liver cancer screening December 2020. 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 Immunizations Name Administration Dates Next Due Influenza [...] apnea 03/24/2018 DX:Obstr uctive sleep apnea; COMMENT: [facility] Home Polysomnogram: Date 03/19/2018; AHI 26, [...] Sign Reading Time Taken Comments Blood Pressure 112/70 03/24/2025 8:53 AM EDT Pulse 70 03/24/2025 8:53 AM EDT Temperature 36.3 C (97.4 F) 03/24/2025 8:53 AM EDT Respiratory Rate 14 03/24/2025 8:53 AM EDT Oxygen Saturation 98% 03/24/2025 8:53 AM EDT Inhaled Oxygen Concentration - - Weight 80.7 kg (178 lb) 03/24/2025 8:53 AM EDT Height 170.2 cm (5' 7 ) 03/24/2025 8:53 AM EDT Body Mass Index 27.88 03/24/2025 8:53 AM EDT Plan of Treatment Upcoming Encounters Date Type Department Care Team (Late st Contact Info) Description 10/20/2025 12:30 PM EST Office Visit Adult Medicine [facility] [address] [place] [address] Rashaad Castro MD [address], [place] Health Maintenance Due Date Last Done Comments Hepatitis B Vaccines (1 of 3 - 19+ 3-dose series) 1985 Pneumococcal Vaccine: 50+ Years (1 of 2 - PCV) 1984 HIV Screening 10/13/2022 Social Influencers of Health Screening 10/13/2022 Depression Screening 11/04/2024 COVID-19 Vaccine ( - 2024- season) 2025 03/29/2022, 03/09/2021, 02/26/2021 Influenza Vaccine (#1) 2025 , 12/25/2021, 06/27/2020, Additional history exists Hypertension/CHF/CAD Annual BMP Blood Test 09/21/2025 09/21/2024, 10/16/2023 Colorectal Cancer Screening: Colonoscopy 04/30/2027 04/30/2022 Cholesterol Screening (Lipid Panel) 09/21/2029 09/21/2024, 10/16/2023 DTaP,Tdap,and Td Vaccines (4 - Td or Tdap) 08/16/2034 08/16/2024, 05/27/2017, 11/15/2004 RSV Immunization Adult Patients (1 - 1-dose 75+ series) 2041 Hepatitis C Screening Completed 11/15/2004 Zoster Vaccines Completed 08/01/2023, 05/23/2023 HIB Vaccines Aged Out No longer eligi ble based on patient's age to complete this topic HPV Vaccines Aged Out No longer eligi ble based on patient's age to complete this topic Hepatitis A Vaccines Aged Out No long er eligible based on patient's age to complete [...] mg/dL LAB CHEMISTRY METHOD 09/21/2024 2:45 PM [facility] Triglycerides 51 0 - 150 mg/dL LAB CHEMISTRY METHOD 09/21/2024 2:45 PM [facility] HDL 47 >=40 mg/dL LAB CHEMISTRY METHOD 09/21/2024 2:45 PM [facility] LDL Calculated 105(H) 0 - 100 mg/dL LAB CHEMISTRY METHOD 09/21/2024 2:45 PM [facility] VLDL Cholesterol Ez 10.2 mg/dL LAB CHEMISTRY METHOD 09/21/2024 2:45 PM [facility] Non HDL Chol. (LDL+VLDL) 115 <145 mg/dL LAB CHEMISTRY METHOD 09/21/2024 2:45 PM [facility] Chol/HDL Ratio 3.4 0.0 - 4.4 LAB CHEMISTRY METHOD 09/21/2024 2:45 PM [facility] Blood Venous blood specimen / Unknown Venipuncture / Unknown 09/21/2024 9:50 AM EST 09/21/2024 9:51 AM EST us Rashaad Castro MD LAB BLOOD ORDERABLES Final Result [facility] [address] [place] [address], [place] [phone] * (ABNORMAL) Comprehensive metabolic panel (09/21/2024 9:50 AM EST) Sodium 140 133 - 145 mmol/L LAB CHEMISTRY METHOD 09/21/2024 2:44 PM [facility] Potassium 3.8 3.5 - 5.5 mmol/L LAB CHEMISTRY METHOD 09/21/2024 2:44 PM [facility] Chloride 111(H) 96 - 110 mmol/L LAB CHEMISTRY METHOD 09/21/2024 2:44 PM [facility] CO2 25 21 - 32 mmol/L LAB CHEMISTRY METHOD 09/21/2024 2:44 PM [facility] Anion Gap 4 3 - 11 LAB CHEMISTRY METHOD 09/21/2024 2:44 PM [facility] Glucose 107(H) 70 - 100 mg/dL LAB CHEMISTRY METHOD 09/21/2024 2:44 PM [facility] BUN 20 5 - 25 mg/dL LAB CHEMISTRY METHOD 09/21/2024 2:44 PM [facility] Creatinine 0.98 0.70 - 1.30 mg/dL LAB CHEMISTRY METHOD 09/21/2024 2:44 PM [facility] eGFR 89 >=60 mL/min/1. 73m2 LAB CHEMISTRY METHOD 09/21/2024 2:44 PM [facility] Comment:Calculation based on the Chronic Kidney Disease Epidemiology Collaboration (CKD-EPI) equation refit without adjustment for race. BUN/Creatinine Ratio 20.4 LAB CHEMISTRY METHOD 09/21/2024 2:44 PM [facility] Calcium 8.9 8.5 - 10.5 mg/dL LAB CHEMISTRY METHOD 09/21/2024 2:44 PM [facility] AST (SGOT) 27 10 - 42 unit/L LAB CHEMISTRY METHOD 09/21/2024 2:44 PM [facility] ALT (SGPT) 33 10 - 60 unit/L LAB CHEMISTRY METHOD 09/21/2024 2:44 PM [facility] Alkaline Phosphatase 90 42 - 121 unit/L LAB CHEMISTRY METHOD 09/21/2024 2:44 PM [facility] Total Protein 7.2 6.0 - 8.0 g/dL LAB CHEMISTRY METHOD 09/21/2024 2:44 PM [facility] Albumin 4.0 3.2 - 5.0 g/dL LAB CHEMISTRY METHOD 09/21/2024 2:44 PM [facility] Total Bilirubin 0.5 0.0 - 1.4 mg/dL LAB CHEMISTRY METHOD 09/21/2024 2:44 PM [facility] Blood Venous blood specimen / Unknown Venipuncture / Unknown 09/21/2024 9:50 AM EST 09/21/2024 9:51 AM EST Rashaad Castro MD LAB BLOOD ORDERABLES Final Result [facility] [address] [place] [address], * Colonoscopy (04/30/2022) Colonoscopy No interpreta tion,abstr acted Anatomical Region Laterality Modality Other Historical Provider HEALTH MAINTENANCE Final Result * Hepatitis C Screening (11/15/2004) Hepatitis C Screening Abstracted Historical Provider HEALTH MAINTENANCE Final Result from Last 3 Months or Most Recently Relevant to Health Maintenance [place] [address] [place] [address] [employer] Care Teams Patient Care Representative Relationship Specialty Start Date End Date Rashaad Castro MD [address] [place] [address] PCP - General Internal Medicine 03/29/22
[2025-07-28 00:13] LABS: Hepatitis B Viral DNA Qn - cp NOT DETECTED Log IU/mL (NOT DETECTED); Hepatitis B Viral DNA Qn-IU/mL NOT DETECTED (NOT DETECTED)
[2025-08-04 19:38] LABS: FIB-ALT 17 U/L (9-46); FIB-Alpha-2-Macroglobulin 240 mg/dL (106-279); FIB-Apolipoprotein A1 131 mg/dL (94-176); FIB-GGT 14 U/L (3-85); FIB-Haptoglobin 78 mg/dL (43-212); FIB-Total Bilirubin 0.4 mg/dL (0.2-1.2); Liver Fibrosis Score 0.34; Liver Fibrosis Stage F1-F2; Nec Inflam Act Grade A0; Nec Inflam Act Score 0.07
== END 2025-07-26 09:58 | disposition home or self-care (01) ==
LOC: HO.LAB 09:57
PROVIDERS: Visit Provider Internal Medicine
DX: B19.10 Unspecified viral hepatitis B without hepatic coma (principal)
CPT/HCPCS: 36415; 80048; 80076; 81596; 85025; 86692; 87517

== ENCOUNTER 2025-08-09 13:16 | Outpatient (AMB) | payer OTHER, SELFPAY ==
--- NOTE | 2025-08-09 13:16 | MHC.OFFVIS ---
Vital Signs 08/09/25 13:20 Height 5 ft 10 in Weight 189 lb BMI 27.1 Pulse 80 Pulse Oximetry (%) 98 Intake Visit Reasons: HEB B Allergies No Known Allergies Allergy (Verified 08/09/25 13:20) HPI Comments Details: History of Present Illness The patient is a 60-year-old male presenting for a 6-month follow-up evaluation of Hepatitis B treatment. He has an established diagnosis and is on Vemlidy 25 mg daily. Prior evaluations graded liver fibrosis as F2, and recent labs show improvement to F1-F2, with unremarkable chemistry panel including stable creatinine and liver function tests. The patient maintains effective management of Essential Hypertension and Hyperlipidemia with amlodipine and pravastatin, respectively. He denies any new symptoms or issues. Review of Systems - General: Denies new medical issues. - Respiratory: Denies symptoms. - Cardiovascular: Denies complaints. - Gastrointestinal: Denies symptoms. - Musculoskeletal: Denies symptoms. - Neurological: Denies symptoms. - Psychiatric: Denies symptoms. Physical Exam - HEENT- Pupils clear, round, reactive to light and accommodation; oropharynx clear. - Respiratory- Lungs clear. - Cardiovascular- Heart rate regular in rhythm. - Abdomen- Soft, non-tender. - Extremities- Non-tender to pressure. - Vital Signs- Stable. Results - Labs: - Hepatitis B viral load: Low, undetectable. - Hepatitis Delta antibody: Negative. - Creatinine and Liver Function Tests (LFTs): Unremarkable. - PT INR: 10.9. - Imaging: - Liver ultrasound (03/11/2025): No nodular contours or lesions; questionably prominent epigastric lymph nodes. Plan Patient was informed and verbally consented to the use of an ambient scribe for clinic note documentation during this visit. 1. Unspecified viral hepatitis B without hepatic coma B19.10 Patient is on Vemlidy 25 mg daily with improved liver fibrosis score and undetectable viral load. Plan includes yearly ultrasound and monitoring of viral load and Hepatitis D annually. 2. Essential (primary) hypertension I10 Continuing with amlodipine 10 mg daily, as vitals remain stable with cardiovascular management effectively maintained. 3. Hyperlipidemia, unspecified E78.5 Patient to continue with pravastatin 20 mg daily, regularly monitoring lipid levels for ongoing control and risk reduction. Discussion Notes During the consultation, I discussed with the patient the ongoing management of Hepatitis B including the successful viral suppression and improvements in liver fibrosis. We reviewed the effectiveness of Vemlidy as an antiviral agent and its continued use. Risks and benefits of regular monitoring through liver ultrasound and viral load evaluations were explained, with agreement on the planned follow-ups. I reiterated the importance of adhering to the current regimen for Hypertension and Hyperlipidemia, emphasizing vigilance towards cardiovascular health. Consent was confirmed for continuation of treatment and monitoring plans, and the patient was informed of scheduled evaluations. Medical Decision Making In evaluating the patient's Hepatitis B, the decision to continue Vemlidy based on low undetectable viral load and stage improvement from F2 to F1-F2 was made. This management plan is aimed at sustained viral suppression and liver health preservation. Essential Hypertension and Hyperlipidemia therapies are effectively controlling the respective conditions, as evidenced by stable vitals. The choice to continue current regimens reflects calculated prevention of cardiac events. The yearly liver ultrasound and monitoring of Hepatitis B viral load ensure diligent oversight of chronic liver disease progression. Goals are targeted toward maintaining stable hepatic function and overall patient health. Patient Instructions - Continue taking Vemlidy 25 mg daily for Hepatitis B management. - Maintain the current dose of amlodipine 10 mg daily for blood pressure. - Take pravastatin 20 mg daily for cholesterol management. - Return for scheduled evaluations, including yearly liver ultrasound. - Monitor for any new symptoms and report them promptly. - Follow up with PCP within the next month. [facility] Medical History Hepatitis B Social History Household Members: Spouse Housing: House Alcohol intake: never Patient Tobacco Use Status: Former Tobacco user Cigarettes Per Day: 2 service: No Current occupational status: unemployed Sexual orientation: Straight/Heterosexual Gender identity: Male Physical Exam Vital Signs: Last Vital Signs Pulse 80 08/09/25 13:20 Pulse Ox 98 08/09/25 13:20 BMI result Body Mass Index 27.1 Assessment & Plan Assessment & Plan (1) Hepatitis B: Comment: He is doing well Code(s): B19.10 - Unspecified viral hepatitis B without hepatic coma Category: Medical Plan: na Coding Level of Care Code Est Pt Level 3 (48843) Diagnoses Hepatitis B B19.10
[2025-08-09 13:20] VITALS: PULSE 80; O2SAT 98; BMI 27.1
--- OUTSIDE RECORDS SUMMARY | 2025-08-09 15:43 | XMS_ITS | Encounter Summary ---
Author Organization [facility] Address [address] [place] [address] Care Team Providers Care Executive Manager Name Role Phone Debbie Luo MD Primary Care Provider Jarrod Armstrong MD Primary Care Provider Rashaad Berman Primary Care Provider [phone] Encounter Details Date Type Department Care Team Description 12/28/2019 Core Maker Report Medical Records [address] [place] [address] Rica Forbes MD Social History Tobacco Use Types Packs/Day Years Used Date Smoking Tobacco: Former Smokeless Tobacco: Never Comments:quit many years ago , unsure of exact date Alcohol Use Standard Drinks/Week Comments No 0 (1 standard drink = 0.6 oz pur e alcohol) Sex Assigned at Date Recorded Not on file Job Start Date Occupation Industry Not on file Not on file Not on file documented as of this encounter Plan of Treatment Not on file documented as of this encounter Visit Diagnoses Not on filedocumented in this encounter Care Teams Executive Manager Relationship Specialty Start Date End Date Debbie Luo MD PCP - General Internal Medicine 11/14/16 10/25/21 Jarrod Chopra MD PCP - General Internal Medicine 10/26/21 03/28/22 Rashaad Castro [address] [place] [address] PCP - General Internal Medicine 03/29/22 documented as of this encounter
--- OUTSIDE RECORDS SUMMARY | 2025-08-09 15:43 | XMS_ITS | Encounter Summary ---
Author Organization [facility] Address [address] [place] [address] Care Team Providers Care Assistant Golf Professional Name Role Phone Debbie Luo MD Primary Care Provider Jarrod Armstrong MD Primary Care Provider Rashaad Berman Primary Care Provider [phone] Encounter Details Date Type Department Care Team Description 06/09/2018 Temper Mill Roller Report Medical Records [address] [place] [address] Rica Forbes MD Social History Tobacco Use [...] on filedocumented in this encounter Care Teams Assistant Golf Professional Relationship Specialty Start Date End Date Debbie Luo MD PCP - General Internal Medicine 11/14/16 10/25/21 Jarrod Chopra MD PCP - General Internal Medicine 10/26/21 03/28/22 Rashaad Castro [address] [place] [address] PCP - General Internal Medicine 03/29/22 documented as of this encounter
--- OUTSIDE RECORDS SUMMARY | 2025-08-09 15:43 | XMS_ITS | Encounter Summary ---
Author Organization [facility] Address [address] [place] [address] Care Team Providers Care Health Educator Name Role Phone Benny Luo MD Primary Care Provider Jarrod Armstrong MD Primary Care Provider Rashaad Berman Primary Care Provider [phone] Encounter Details Date Type Department Care Team Description 01/10/2018 Telephone Adult [address] [address] Benny Luo MD Social History Tobacco Use Types Packs/Day Years Used Date Smoking Tobacco: Former Smokeless Tobacco: Former Comments:quit many years ago , unsure of exact date Alcohol Use Standard Drinks/Week Comments No 0 (1 standard drink = 0.6 oz pur e alcohol) Sex Assigned at Date Recorded Not on file Job Start Date Occupation Industry Not on file Not on file Not on file documented as of this encounter Miscellaneous Notes * Telephone Encounter - Benny Luo MD - 01/10/2018 10:32 AM EST [facility] to get information. They plan on doing a dilated eye exam in 6 months. The conversation regarding bleeding in the back of the eye was a finding of retinal vein occlusion. No edema, normal vision. Follow up with PCP to rule out hypertension. Advised to book appointment for blood pressure follow up. BENNY SÁNCHEZ MD 10:51 AM documented in this encounter Plan of Treatment Not on file documented as of this encounter Visit Diagnoses Not on filedocumented in this encounter Care Teams Health Educator Relationship Specialty Start Date End Date Benny Luo MD PCP - General Internal Medicine 11/14/16 10/25/21 Jarrod Chopra MD PCP - General Internal Medicine 10/26/21 03/28/22 Rashaad Castro [address] [place] [address] PCP - General Internal Medicine 03/29/22 documented as of this encounter
--- OUTSIDE RECORDS SUMMARY | 2025-08-09 15:43 | XMS_ITS | Clinical Summary ---
Author Organization [facility] Address [address] [place] [address] Care Team Providers Care Pharmacists Name Role Phone Rashaad Castro Primary Care Provider [phone] Allergies Active Allergy Reactions Severity Noted Date Comments Fruit (Generic) 12/04/2016 Peaches and cherries Lisinopril Cough Medium 02/24/2018 Seasonal Allergies 11/21/2016 Medications Medication Sig Dispensed Refills Start Date End Date Status CPAP Historical (HISTORICAL CPAP) Inhale into the lungs. Regional-pressure 6-16 0 Active Tenofovir Alafenamide Fumarate 25 MG Tab 0 12/25/2021 Active Phenylephrine-Witch Kiana (Preparation H) 0.25-50 % Gel Apply 1 Applicator topically 2 times daily as needed (Rectal pain/bleeding). 30 g 2 10/22/2023 Active tamsulosin (FLOMAX) 0.4 MG 24 hr capsule Take 1 Capsule by mouth daily. Take 30 mins after same meal every day. 90 Capsule 1 03/23/2024 Active pravastatin (PRAVACHOL) 20 MG tablet Take 1 Tablet by mouth daily. 90 Tablet 1 03/23/2024 Active fluticasone 50 MCG/ACT nasal spray 1 [place] by Nasal route daily. 16 g 2 03/23/2024 Active Cholecalciferol (Vitamin D) 25 MCG (1000 UT) Tab Take 1,000 Units by mouth daily. 90 Tablet 1 03/23/2024 Active amlodipine (NORVASC) 10 MG tablet Take 1 Tablet by mouth daily. 90 Tablet 1 03/23/2024 Active Active Problems Problem Noted Date Thyroid nodule 10/21/2023 Prediabetes 10/21/2023 Prostate enlargement 09/20/2021 Ground glass opacity present on imaging of lung 06/23/2018 Upper airway cough syndrome 04/03/2018 Pulmonary nodules 04/03/2018 MAISHA on CPAP 03/24/2018 Overview: [facility] Home Polysomnogram: Date 03/19/2018; AHI 26, Unclassified apneas 113; Obstructive apneas 0; Central apneas 0; Mixed apneas 0; hypopneas 7; average oxygen saturation 95% (lowest 75% with saturations <88% for 5% or more of study) [facility] Home sleep test 03/05/2022; weight 173; BMI [...] Essential hypertension 03/03/2018 Persistent dry cough 03/03/2018 Overview: D/c lisinopril Started PPI Normal PFT's and CT scan of the chest in 06/2017 Overweight (BMI 25.0-29.9) 01/13/2018 Retinal vein occlusion 01/10/2018 Overview: Follows with [facility] Hypercholesteremia 10/21/2017 Chronic hepatitis B 11/21/2016 Overview: Follows with ID Dr Forbes on Viread Had ultrasound for liver cancer screening December 2020. He also had liver fibrosis panel and follows with his zoogler Resolved Problems Problem Noted Date Resolved Date House dust mite allergy 06/23/2018 01/04/[address] of the chest 06/23/2018 019 Atelectasis 06/23/2018 03/09/2019 Allergic rhinitis 04/03/2018 04/03/2018 Incidental lung nodule, > 3mm and < 8mm 05/27/20 17 10/21/2017 Overview: CT chest pending Dyslipidemia 11/21/2016 10/21/2017 Immunizations Name Administration Dates Next Due COVID-19 (Pfizer) 03/09/2021,02/26/2021 Influenza Flu (PT Reported) 06/27/2020, 6 Influenza Vaccine-preservati ve Free-quadrivalent 4 Years 10/21/2023,12/25/2021 Shingrix (Patient reported) 08/01/2023, 3 TETANUS/DIPTHERIA (ADULT) 11/15/2004 Tdap 05/27/2017 Family History Medical History Relation Name Comments No Known Problems Brother 1 No Known Problems Brother 2 No Known Problems Brother 3 No Known Problems Daughter Hypertension Father No Known Problems Maternal Grandfather No Known Problems Maternal Grandmother CA Lung Mother Diabetes Mother No Known Problems Paternal Grandfather No Known Problems Paternal Grandmother No Known Problems Sister 1 No Known Problems Sister 2 No Known Problems Son CAD Negative Hx Relation Name Status Comments Brother 1 Alive Brother 2 Alive Brother 3 Alive Daughter Alive Father Alive Maternal Grandfather Maternal Grandmother Mother Alive Paternal Grandfather Paternal Grandmother Sister 1 Alive Sister 2 Alive Son Alive Social History Tobacco Use Types Packs/Day Years Used Date Smoking Tobacco: Former Smokeless Tobacco: Never Tobacco Cessation:Counseling Given: Not Answered Comments:Quit 2017 (he was a light smoker, <20 packyears) Alcohol Use Standard Drinks/Week Comments No 0 (1 standard drink = 0.6 oz pur e alcohol) Sex Assigned at Date Recorded Not on file Job Start Date Occupation Industry Not on file Not on file Not on file Last Filed Vital Signs Vital Sign Reading Time Taken Comments Blood Pressure 114/82 03/23/2024 9:54 AM EDT Pulse 64 03/23/2024 9:54 AM EDT Temperature 35.8 C (96.5 F) 03/23/2024 9:54 AM EDT Respiratory Rate 16 03/23/2024 9:54 AM EDT Oxygen Saturation 97% 08/02/2023 8:45 AM EDT Inhaled Oxygen Concentration - - Weight 83.9 kg (185 lb) 03/23/2024 9:54 AM EDT Height 172.7 cm (5' 8 ) 03/23/2024 9:54 AM EDT Body Mass Index 28.13 03/23/2024 9:54 AM EDT Plan of Treatment Health Maintenance Due Date Last Done Comments BMI CHECK/ADVISE 11/04/2024 03/23/2024, , 05/20/2023, Additional history exists DEPRESSION SCREENING/FOLLOWUP 11/04/2024 12/25/2021 (Completed), 11/07/2020 (Completed), 11/07/2020, Additional history exists SOCIAL NEEDS SCREENING 11/04/2024 (Completed), 11/07/2020 (Completed), 11/07/2020, Additional history exists Covid-19 Vaccine ( season) 2025 03/09/2021, 02/26/2021 INFLUENZA (#1) 2025 10/21/2023, 12/06, 06/27/2020, Additional history exists BASELINE HEALTH EXAM 40-64 10/16/202510/16, 05/20/2023, 12/25/2021, Additional history exists COLON CANCER SCREENING 04/30/2027 04/30/2022, 2016 DTAP/TDAP/TD (2 - Td or Tdap) 05/27/2027 05/27/2017, 05/27/2017 CHOLESTEROL SCREENING 10/16/2028 10/16/2023 , 11/27/2022, 12/04/2021, Additional history exists PNEUMOCOCCAL VACCINE FOR HIGH RISK PATIENTS (#1) 2031 HEPATITIS C SCREENING Addressed 03/03/2018 (External Completion), 11/15/2004 Overridden with the intention of not completing the topic SHINGLES VACCINE Completed 08/01/2023, 05/23/2023 Care Teams Pharmacists Relationship Specialty Start Date End Date Rashaad Castro [address] [place] [id number] PCP - General Internal Medicine 03/29/22
--- OUTSIDE RECORDS SUMMARY | 2025-08-09 15:43 | XMS_ITS | Encounter Summary ---
Author Organization [facility] Address [address] [place] [address] Care Team Providers Care Electrical Designer Drafter Name Role Phone Debbie Luo MD Primary Care Provider Jarrod Armstrong MD Primary Care Provider Rashaad Berman Primary Care Provider Reason for Referral * INTERNAL (Priority) - Unable to reach/declined Specialty Diagnoses / Procedures Referred By Contac t Referred To Contact Allergy & Immunology / Allergy Procedures REFERRAL TO ALLERGY MylesDoe Juares MD [address] [phone] Lina Shankar MD [address] [place] [address] Referral ID Status Reason Start Date Expiration Date V isits Requested Visits Authorized [id number]/ 15/18 Unable to reach/decli ronaldo 04/11/2018 04/11/2019 1 1 Encounter Details Date Type Department Care Team Description 04/11/2018 Telephone Pulmonology [address] [place] [address] Doe Haro MD [address] [phone] Social History Tobacco Use Types Packs/Day Years [...] encounter Miscellaneous Notes * Telephone Encounter - Doe Haro MD - 04/11/2018 5:30 PM EDT I called him, I left a message, allergy test was positive. I referred him to the supervisory historian. Letter was sent documented in this encounter Plan of Treatment Not on file documented as of this encounter Visit Diagnoses Not on filedocumented in this encounter Care Teams Electrical Designer Drafter Relationship Specialty Start Date End Date Debbie Luo MD PCP - General Internal Medicine 11/14/16 10/25/21 Jarrod Chopra MD PCP - General Internal Medicine 10/26/21 03/28/22 Rashaad Castro [address] [place] [id number] PCP - General Internal Medicine 03/29/22 documented as of this encounter
--- OUTSIDE RECORDS SUMMARY | 2025-08-09 15:43 | XMS_ITS | Clinical Summary ---
Author Organization [address] Address [address] [place] [phone] Phone Care Team Providers Care Tin Container Straightener Name Role Phone Rashaad Castro MD Primary Care Provider [phone] Allergies Active Allergy Reactions Criticality Noted Date [...] 04/03/2018 MAISHA on CPAP 03/24/2018 Overview (08/12/2024): [facility] Home Polysomnogram: Date 03/19/2018; AHI 26, Unclassified apneas 113; Obstructive apneas 0; Central apneas 0; Mixed apneas 0; hypopneas 7; average oxygen saturation 95% (lowest 75% with saturations <88% for 5% or more of study) [facility] Home sleep test 03/05/2022; weight [...] Overweight (BMI 25.0-29.9) 01/13/2018 Retinal vein occlusion ([facility]/HCC V28) 01/10/2018 Overview (08/12/2024): Follows with [facility] Hypercholesteremia 10/21/2017 Chronic hepatitis B (CMS/HCC V24, CMS/HCC V28) 0 11/21/2016 Overview (08/12/2024): Follows with ID Dr Forbes on Viread Had ultrasound for liver cancer screening December 2020. He also had liver fibrosis panel and follows with his trademark attorney Immunizations Immunization Administration Dates Next Due Influenza Quadravalent, MDCK [...] apnea 03/24/2018 DX:Obstr uctive sleep apnea; COMMENT: [facility] Home Polysomnogram: Date 03/19/2018; AHI [...] 12:30 PM EST Office Visit Adult Medicine [facility] [address] [place] [address] Rashaad Castro MD [address] [place], [place] Health Maintenance Due Date Last Done [...] mg/dL LAB CHEMISTRY METHOD 09/21/2024 2:[address] [facility] Triglycerides 51 0 - 150 mg/dL LAB CHEMISTRY METHOD 09/21/2024 2:[address] [facility] HDL 47 >=40 mg/dL LAB CHEMISTRY METHOD 09/21/2024 2:[address] [facility] LDL Calculated 105(H) 0 - 100 mg/dL LAB CHEMISTRY METHOD 09/21/2024 2:[address] [facility] VLDL Cholesterol Ez 10.2 mg/dL LAB CHEMISTRY METHOD 09/21/2024 2:[address] [facility] Non HDL Chol. (LDL+VLDL) 115 <145 mg/dL LAB CHEMISTRY METHOD 09/21/2024 2:[address] [facility] Chol/HDL Ratio 3.4 0.0 - 4.4 LAB CHEMISTRY METHOD 09/21/2024 2:[address] [facility] Blood Venous blood specimen / Unknown Venipuncture / Unknown 09/21/2024 9:50 AM EST 09/21/2024 9:51 AM EST us Rashaad Castro MD LAB BLOOD ORDERABLES Final Result [facility] [address] [place] [address], [place] [phone] * (ABNORMAL) Comprehensive metabolic panel (09/21/2024 9:50 AM EST) Sodium 140 133 - 145 mmol/L LAB CHEMISTRY METHOD 09/21/2024 2:[address] [facility] Potassium 3.8 3.5 - 5.5 mmol/L LAB CHEMISTRY METHOD 09/21/2024 2:[address] [facility] Chloride 111(H) 96 - 110 mmol/L LAB CHEMISTRY METHOD 09/21/2024 2:[address] [facility] CO2 25 21 - 32 mmol/L LAB CHEMISTRY METHOD 09/21/2024 2:[address] [facility] Anion Gap 4 3 - 11 LAB CHEMISTRY METHOD 09/21/2024 2:[address] [facility] Glucose 107(H) 70 - 100 mg/dL LAB CHEMISTRY METHOD 09/21/2024 2:[address] [facility] BUN 20 5 - 25 mg/dL LAB CHEMISTRY METHOD 09/21/2024 2:[address] [facility] Creatinine 0.98 0.70 - 1.30 mg/dL LAB CHEMISTRY METHOD 09/21/2024 2:[address] [facility] eGFR 89 >=60 mL/min/1. 73m2 LAB CHEMISTRY METHOD 09/21/2024 2:[address] [facility] Comment:Calculation based on the Chronic Kidney Disease Epidemiology Collaboration (CKD-EPI) equation refit without adjustment for race. BUN/Creatinine Ratio 20.4 LAB CHEMISTRY METHOD 09/21/2024 2:[address] [facility] Calcium 8.9 8.5 - 10.5 mg/dL LAB CHEMISTRY METHOD 09/21/2024 2:[address] [facility] AST (SGOT) 27 10 - 42 unit/L LAB CHEMISTRY METHOD 09/21/2024 2:[address] [facility] ALT (SGPT) 33 10 - 60 unit/L LAB CHEMISTRY METHOD 09/21/2024 2:[address] [facility] Alkaline Phosphatase 90 42 - 121 unit/L LAB CHEMISTRY METHOD 09/21/2024 2:[address] [facility] Total Protein 7.2 6.0 - 8.0 g/dL LAB CHEMISTRY METHOD 09/21/2024 2:[address] [facility] Albumin 4.0 3.2 - 5.0 g/dL LAB CHEMISTRY METHOD 09/21/2024 2:[address] [facility] Total Bilirubin 0.5 0.0 - 1.4 mg/dL LAB CHEMISTRY METHOD 09/21/2024 2:[address] [facility] Blood Venous blood specimen / Unknown Venipuncture / Unknown 09/21/2024 9:50 AM EST 09/21/2024 9:51 AM EST Rashaad Castro MD LAB BLOOD ORDERABLES Final Result [facility] [address] [place] [address], * Colonoscopy (04/30/2022) Colonoscopy No interpreta tion,abstr acted Anatomical Region Laterality Modality Other Historical Provider HEALTH MAINTENANCE Final Result * Hepatitis C Screening (11/15/2004) Hepatitis C Screening Abstracted Historical Provider HEALTH MAINTENANCE Final Result from Last 3 Months or Most Recently Relevant to Health Maintenance [place] [address] HEALTH PLAN Care Teams Tin Container Straightener Relationship Specialty Start Date End Date Rashaad Castro MD [address] [place] [address] PCP - General Internal Medicine 03/29/22
--- OUTSIDE RECORDS SUMMARY | 2025-08-09 15:43 | XMS_ITS | Encounter Summary ---
Author Organization [facility] Address [address] [place] [address] Care Team Providers Care Electrical Power Station Technician Name Role Phone Jarrod Chopra MD Primary Care Provider Rashaad Berman Primary Care Provider [phone] Encounter Details Date Type Department Care Team Description 12/04/2021 Threading Machine Tender Report Medical Records [address] [place] [address] Fritz Yin MD Social History Tobacco Use Types Packs/Day Years Used Date Smoking Tobacco: Former Smokeless Tobacco: Never Comments:quit many years ago , unsure of exact date Alcohol Use Standard Drinks/Week Comments No 0 (1 standard drink = 0.6 oz pur e alcohol) Sex Assigned at Date Recorded Not on file Job Start Date Occupation Industry Not on file Not on file Not on file COVID-19 Exposure Response Date Recorded In the last month, have you been in contact with someone who was confirmed or suspected to have Coronavirus / COVID-19? No / Unsure 12/04/2021 10:49 AM EST documented as of this encounter Plan of Treatment Not on file documented as of this encounter Visit Diagnoses Not on filedocumented in this encounter Care Teams Electrical Power Station Technician Relationship Specialty Start Date End Date Jarrod Chopra MD PCP - General Internal Medicine 10/26/21 03/28/22 Rashaad Castro [address] [place] [address] PCP - General Internal Medicine 03/29/22 documented as of this encounter
--- OUTSIDE RECORDS SUMMARY | 2025-08-09 15:43 | XMS_ITS | Encounter Summary ---
Author Organization [facility] Address [address] [place] [address] Care Team Providers Care Multiple Effect Evaporator Operator Name Role Phone Jarrod Chopra MD Primary Care Provider Rashaad Berman Primary Care Provider Encounter Details Date Type Department Care Team Description 03/12/2022 Orders Only Medical Records [address] [place] [address] Chika Capellan PA-C [address] [place] [address] Social History Tobacco Use Types Packs/Day Years [...] on file documented as of this encounter Procedures Procedure Name Priority Date/Time Associated Diagnosis Comments OUTSIDE SLEEP STUDY Routine 03/05/2022 documented in this encounter Results * OUTSIDE SLEEP STUDY (03/05/2022) Chika Capellan PA-C PULMONOLOGY documented in this encounter Visit Diagnoses Not on filedocumented in this encounter Care Teams Multiple Effect Evaporator Operator Relationship Specialty Start Date End Date Jarrod Chopra MD PCP - General Internal Medicine 10/26/21 03/28/22 Rashaad Castro [address] [place] [address] PCP - General Internal Medicine 03/29/22 documented as of this encounter
--- OUTSIDE RECORDS SUMMARY | 2025-08-09 15:43 | XMS_ITS | Encounter Summary ---
Author Organization [facility] Address [address] [place] [address] Care Team Providers Care Director Of Technology Name Role Phone Jarrod Chopra MD Primary Care Provider Rashaad Berman Primary Care Provider [phone] Reason for Visit * Reason Onset Date Comments Professional Fee Coder Feedback 12/26/2021 Sleep Study - Pu lmonology Encounter Details Date Type Department Care Team Description 12/26/2021 Telephone [place] [address] Chika Capellan PA-C [address] [place] [address] Professional Fee Coder Feedback (Sleep Study - Pulmonology) Social History Tobacco Use Types Packs/Day Years [...] have Coronavirus / COVID-19? No / Unsure 12/25/2021 11:03 AM EST documented as of this encounter Miscellaneous Notes * Telephone Encounter - Chika Capellan PA-C - 12/26/2021 3:36 PM EST All set. * Telephone Encounter - Krista fallon Nithin - 12/26/2021 3:05 PM EST Chika, You placed a pulmonology referral for the patient to be seen for MAISHA doesn't tolerate CPAP. Kennedy's last sleep study was done 03/19/18. He would need a new sleep study done because this one is to old. Sleep apnea requires a sleep study prior to being scheduled. I have pended the appropriate order for you to review and if you agree complete. Thank you, Krista Weller Internal Central Scheduling documented in this encounter Plan of Treatment Scheduled Orders Name Type Priority Associated Diagnoses Orde r Schedule SLEEP STUDY-FULL NEURO 16 CHANNEL SLEEP STUDY Routine Obstructive sleep apnea Expected: 12/26/2021, Expires: 12/26/2022 documented as of this encounter Visit Diagnoses Diagnosis Obstructive sleep apnea- Primary Obstructive sleep apnea (adult) (pediatric) documented in this encounter Care Teams Director Of Technology Relationship Specialty Start Date End Date Jarrod Chopra MD PCP - General Internal Medicine 10/26/21 03/28/22 Rashaad Castro [address] [place] [id number] PCP - General Internal Medicine 03/29/22 documented as of this encounter
== END 2025-08-09 13:42 | disposition home or self-care (01) ==
LOC: HO.HID 13:16
PROVIDERS: PCP Internal Medicine; Visit Provider Internal Medicine
DX: B19.10 Unspecified viral hepatitis B without hepatic coma (principal)
CPT/HCPCS: 99213

== ENCOUNTER → 2025-08-09 13:16 | Outpatient (BNVA) | payer OTHER, SELFPAY | PROVIDERS: PCP Internal Medicine; Visit Provider Internal Medicine | DX: B19.10 Unspecified viral hepatitis B without hepatic coma (principal); I10 Essential (primary) hypertension; E78.5 Hyperlipidemia, unspecified | CPT/HCPCS: 99212 ==